=== PATIENT | female | born 1960 | race Hispanic/Latino ===

== ENCOUNTER 2016-10-03 10:39 | Outpatient (CLI) | payer MEDICARE ==
--- NOTE | 2016-10-03 14:15 | Mammography Report ---
Bilateral mammogram: Compared to 08/10/15. CAD study utilized. Findings: Heterogeneous breast parenchyma bilaterally. Bilateral benign calcifications. No mass. Normal axilla. Impression: Benign findings. Annual followup recommended. BI-RADS CATEGORY: 2 = Benign ACR BI-RADS MAMMOGRAPHIC CODES: 0 = Needs additional imaging evaluation; 1 = Negative; 2 = Benign; 3 = Probably benign; 4 = Suspicious; 5 = Malignant; 6 = Known biopsy-proven malignancy COMMENT: 1. Dense breast tissue, i.e., adenosis, fibrocystic changes, etc., may obscure an underlying neoplasm. 2. Approximately 10% of cancers are not detected with mammography. 3. A negative mammography report should not delay biopsy if a clinically suspicious mass is present. COMMENT: Patient follow-up letters are generated in [employer].
== END 2016-10-03 10:40 | disposition home or self-care (01) ==
LOC: MAMMO 10:39
PROVIDERS: ATTEND Family Medicine
DX: Z12.31 Encounter for screening mammogram for malignant neoplasm of breast (principal)
CPT/HCPCS: 77067; G0202

== ENCOUNTER 2018-06-22 13:51 | Inpatient (IN) | payer MEDICARE ==
[2018-06-22] MEDS ORDERED: NACL 0.9% 1000 ML 1,000 ML IV ONE ×2 (14:28→16:13)
[2018-06-22 14:37] LABS: Hematocrit 26.1 % (30.3-42.9); Hemoglobin 7.8 gm/dl (10.1-14.3); Mean Corpuscular HGB Conc 30 % (30-34); Mean Corpuscular Hemoglobin 27 pg (28-32); Mean Corpuscular Volume 92 fl (79-97); Platelet Count 183 K/mm3 (140-440); Red Blood Count 2.85 M/mm3 (3.65-5.03)
--- NOTE | 2018-06-22 14:38 | Emergency Department Report ---
HPI - General Chief Complaint: Altered Mental Status Time Seen by Provider: 06/22/18 14:13 - HPI HPI: 58-year-old female presents to the emergency department via EMS from home with altered mental status. I got a phone call from EMS when they were at the house as the patient was altered but agitated and did not want to come in to be seen. However the patient's has concern for her altered mental status and thinks that she may be having multiple mini seizures and wanted the patient seen and agreed to sedation. The patient does not 5 mg of Haldol in route without much change. She has a past medical history of COPD, liver cirrhosis, alcohol abuse, previous brain aneurysm with surgery. She follows with Dr. Brand of [facility] for her liver cirrhosis and the called gastroenterology and they were told to call 911 and come to the emergency department. The says that the patient has had episodes of altered mental status and agitation in the past that has required hospitalization secondary to complications of her liver cirrhosis. ED Past Medical Hx - Past Medical History Previous Medical History?: Yes Hx Seizures: Yes (Keppra) Hx COPD: Yes Additional medical history: "liver problems" associated with alcohol but resolved years ago - Surgical History Past Surgical History?: Yes Additional Surgical History: brain aneurysm, ankle surgery > 10 yrs ago - Social History Smoking Status: Current Every Day Smoker Substance Use Type: Alcohol - Medications Home Medications: Home Medications Medication Instructions Recorded Confirmed Last Taken Type Furosemide [Lasix] 20 mg PO DAILY 10/30/13 06/22/18 10/29/13 20:00 History Gabapentin [Neurontin] 200 mg PO BID 10/30/13 06/22/18 10/29/13 20:00 History Ipratropium (Nf) [Atrovent HFA 2 puff IH Q6HR PRN 10/30/13 06/22/18 10/29/13 20: 00 History 17MCG/PUFF] Spironolactone [Aldactone] 50 mg PO BID 10/30/13 06/22/18 10/29/13 20:00 History levETIRAcetam [Keppra] 500 mg PO BID #60 tablet 12/05/14 06/22/18 Unknown Rx Budesonide/Formoterol Fumarate 2 puff INHALATION BID 06/22/18 06/22/18 Unknown History [Symbicort 160-4.5 Mcg Inhaler] Ibuprofen 600 mg PO Q6HR 06/22/18 06/22/18 Unknown History Metoprolol Xl [Metoprolol 25 mg PO DAILY 06/22/18 06/22/18 Unknown History SUCCINATE ER TAB] Omeprazole 40 mg PO DAILY 06/22/18 06/22/18 Unknown History metOLazone [Metolazone] 5 mg PO 3XW 06/22/18 06/22/18 Unknown History ED Review of Systems ROS: Stated complaint: ALOC Other details as noted in HPI Comment: Unobtainable due to pts medical conditions Neurological: confusion Physical Exam - Physical Exam Vital Signs: Vital Signs 06/22/18 14:01 Temperature 97.8 F Pulse Rate 82 Respiratory 19 Rate Blood Pressure 81/43 O2 Sat by Pulse 100 Oximetry Physical Exam: GENERAL: Well nourished. Well developed. HENT: Normocephalic. Atraumatic. Patient has moist mucous membranes. EYES: Extraocular motions are intact. Pupils are equal and reactive bilaterally. NECK: Supple. Trachea is midline. CHEST/LUNGS: Clear to auscultation. There is no respiratory distress noted. HEART/CARDIOVASCULAR: Irregular rhythm. There is mild tachycardia. ABDOMEN: Abdomen is soft, nontender. Patient has normal bowel sounds. There is no abdominal distention. SKIN: Patient appears jaundiced. Skin is warm and dry. NEURO: Patient is awake but confused. She is agitated and cursing at staff. Patient is not cooperative. No facial asymmetry. No slurred speech. MUSCULOSKELETAL: There is no tenderness or deformity. There is no evidence of acute injury. ED Course Vital Signs 06/22/18 14:01 Temperature 97.8 F Pulse Rate 82 Respiratory 19 Rate Blood Pressure 81/43 O2 Sat by Pulse 100 Oximetry ED Medical Decision Making - Lab Data Result diagrams: 06/22/18 14:27 06/22/18 14:27 - EKG Data -: EKG Interpreted by Me - EKG Data When compared to previous EKG there are: previous EKG unavailable Interpretation: other (atrial flutter, normal axis, prolonged QTC, rate of 130 bpm) - Radiology Data Radiology results: report reviewed EXAM: US ABDOMEN LIMITED HISTORY: AMS, bilirubin of 11, hx of cirhosis TECHNIQUE: Real-time sonography was performed of the right upper quadrant and images are submitted for interpretation. PRIORS: None. FINDINGS: The liver has increased echogenicity in the lobular contour. The gallbladder appears distended and filled with sludge. There is no pericholecystic fluid. Numerous tortuous vessels are identified in the right upper quadrant suspicious for portosystemic collaterals. The common bile duct is not well seen. The pancreas is not well seen. The visualized segments of the abdominal aorta and IVC appear normal. The right kidney appears normal in size, shape and echogenicity, measuring 9.9 x 5.2 x 4.2 cm. IMPRESSION: 1. Echogenic lobular liver consistent with history of cirrhosis 2. Probable portosystemic collateral vessels 3. The gallbladder is distended and filled with sludge. There is no strong evidence for acute cholecystitis. Transcribed By: MOHINDER Dictated By: PAU WARREN MD Electronically Authenticated By: PAU WARREN MD Signed Date/Time: 06/22/181939 EXAM: CT HEAD/BRAIN WO CON HISTORY: AMS TECHNIQUE: CT examination of the head without IV contrast PRIORS: None. FINDINGS: Prior right frontoparietal craniotomy. Nonspecific hypodensity with volume loss and encephalomalacia is noted in the right occipital lobe suggestive of chronic infarct. There is associated ex vacuo dilatation of the adjacent occipital horn of the right lateral ventricle. No acute air-fluid level visualized in the included air-filled sinuses. Bone windows demonstrate no acute fracture. There is ventricular and sulcal prominence compatible with global cerebrocortical atrophy. The brain contains no mass, mass effect, hemorrhage, or acute infarct. There is no extra-axial intracranial bleed, brain bleed, or midline shift. 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 Both during the EMS call prior to presentation and once the patient arrived to the emergency department, the patient has shown that she has altered mental status. She is AAO 1-2. She is very agitated, cursing at staff and acting appropriately. Not only does the say that she is altered from her baseline, but I do not feel that this patient is acting appropriately and does not have the current mental capacity to make appropriate decisions for herself. Patient's labs show a ammonia level of greater than 100. Some lactulose was ordered. She has normal transaminase but has a total bilirubin of about 11. Patient has a potassium level of 2.5. I started correcting this with both by mouth and IV potassium supplementation. Patient's heart rate sounds and appears irregular and at times she has a rapid rate. Patient required some medication to be able to get the CT and ultrasound imaging done. The CT of the head did not show any bleed, shift, mass or any other acute process. Ultrasound shows gallbladder sludge but no signs of cholecystitis or acute Cholangitis. Patient will be admitted to the hospital for further evaluation and treatment and was except for admission by the hospitalist, Dr. Billy. - Differential Diagnosis hyperammonemia, CVA, TIA, dysrhythmia Critical Care Time: No Critical care attestation.: If time is entered above; I have spent that time in minutes in the direct care of this critically ill patient, excluding procedure time. ED Disposition Clinical Impression: Atrial flutter with rapid ventricular response, Hypokalemia, Hyperammonemia, Encephalopathy Altered mental status Qualifiers: Altered mental status type: unspecified Qualified Code(s): R41.82 - Altered mental status, unspecified Liver cirrhosis Qualifiers: Hepatic cirrhosis type: alcoholic cirrhosis Ascites presence: without ascites Qualified Code(s): K70.30 - Alcoholic cirrhosis of liver without ascites Disposition: 09 OP ADMIT IP TO THIS HOSP Is pt being admited?: Yes Condition: Serious Referrals: PRIMARY CARE, [Primary Care Provider] - 3-5 Days Time of Disposition: 19:48
[2018-06-22 15:07] LABS: BUN/Creatinine Ratio 20; Blood Urea Nitrogen 8 mg/dL (7-17)
[2018-06-22] MEDS ORDERED: CEPHULAC PO ONE (15:07)
[2018-06-22 15:08] LABS: Alanine Aminotransferase 48 units/L (7-56); Albumin 2.7 g/dL (3.9-5); Calcium 8.2 mg/dL (8.4-10.2); Hemolysis Index 10
[2018-06-22 15:11] LABS: Basophils % (Manual) 0 % (0.0-1.8); Eosinophils % (Manual) 0 % (0.0-4.3); Total Cells Counted 100
[2018-06-22 15:12] LABS: Anisocytosis 1+; Platelet Estimate Consistent w Auto
[2018-06-22 15:13] LABS: Poikilocytosis 1+; Spherocytes Few; Target Cells Few
[2018-06-22] MEDS ORDERED: K-DUR PO ONE ×3 (15:24→20:45)
[2018-06-22] MEDS ORDERED: KETALAR IV ONE (16:38)
[2018-06-22] MEDS ORDERED: ATIVAN IV ONE (16:38)
[2018-06-22] MEDS: KCL 10MEQ/100ML 10 MEQ/100 ML BAG IV SCH ×3 (16:55→23:35)
[2018-06-22] MEDS ORDERED: KETAMINE HCL IV ONE (17:00)
[2018-06-22 17:13] LABS: Bacteria,Urine 2+ /HPF (Negative); Bilirubin,Urine NEG (Negative); Blood,Urine NEG (Negative); Color,Urine Amber (Yellow); Mucus,Urine FEW /HPF; Protein,Urine <15 mg/dL mg/dL (Negative)
[2018-06-22 17:18] LABS: Amphetamine Screen,Urine PRESUMPTIVE NEGATIVE; Benzodiazepines Screen,Urine PRESUMPTIVE NEGATIVE; Cannabinoid Screen,Urine PRESUMPTIVE NEGATIVE; Cocaine Screen,Urine PRESUMPTIVE NEGATIVE; Methadone Screen,Urine PRESUMPTIVE NEGATIVE; Opiate Screen,Urine PRESUMPTIVE NEGATIVE
--- NOTE | 2018-06-22 18:08 | Cat Scan Report ---
FINAL REPORT EXAM: CT HEAD/BRAIN WO CON HISTORY: AMS TECHNIQUE: CT examination of the head without IV contrast PRIORS: None. FINDINGS: Prior right frontoparietal craniotomy. Nonspecific hypodensity with volume loss and encephalomalacia is noted in the right occipital lobe suggestive of chronic infarct. There is associated ex vacuo dilatation of the adjacent occipital horn of the right lateral ventricle. No acute air-fluid level visualized in the included air-filled sinuses. Bone windows demonstrate no acute fracture. There is ventricular and sulcal prominence compatible with global cerebrocortical atrophy. The brain contains no mass, mass effect, hemorrhage, or acute infarct. There is no extra-axial intracranial bleed, brain bleed, or midline shift. IMPRESSION: No acute CVA, intracranial bleed, or brain mass Findings suggest chronic infarct in right occipital lobe
--- NOTE | 2018-06-22 19:38 | Ultrasound Report ---
FINAL REPORT EXAM: US ABDOMEN LIMITED HISTORY: AMS, bilirubin of 11, hx of cirhosis TECHNIQUE: Real-time sonography was performed of the right upper quadrant and images are submitted for interpretation. PRIORS: None. FINDINGS: The liver has increased echogenicity in the lobular contour. The gallbladder appears distended and filled with sludge. There is no pericholecystic fluid. Numerous tortuous vessels are identified in the right upper quadrant suspicious for portosystemic collaterals. The common bile duct is not well seen. The pancreas is not well seen. The visualized segments of the abdominal aorta and IVC appear normal. The right kidney appears normal in size, shape and echogenicity, measuring 9.9 x 5.2 x 4.2 cm. IMPRESSION: 1. Echogenic lobular liver consistent with history of cirrhosis 2. Probable portosystemic collateral vessels 3. The gallbladder is distended and filled with sludge. There is no strong evidence for acute cholecystitis.
--- NOTE | 2018-06-22 20:01 | History and Physical Report ---
History of Present Illness Date of examination: 06/22/18 Date of admission: 06/22/2018 Chief complaint: Chief complaint Altered sensorium and severe confusion History of present illness: [place]: 58-year-old female with history of end-stage liver disease brought in from home for severe confusion and agitation and altered sensorium. Patient did not want to come but because of her came in. As per the she may be having multiple mini seizures. Patient was given Haldol 5 mg by EMS without much change. Patient has a history of COPD and sees lung disease seizure disorder COPD hypertension and gastroesophageal reflux disease. Patient had similar episodes of confusion and seizures in the past. Patient is not on chronic lactulose. No fever or chills. No dysuria. Patient has agitation. Past Medical History Previous Medical History?: Yes Hx Seizures: Yes ([place]oz) Hx COPD: Yes Additional medical history: "liver problems" associated with alcohol but resolved years ago End-stage liver disease Surgical History Past Surgical History?: Yes Additional Surgical History: brain aneurysm, ankle surgery > 10 yrs ago Social History Smoking Status: Current Every Day Smoker Substance Use Type: Alcohol Family history Hypertension - Medications Home Medications: Home Medications Medication Instructions Recorded Confirmed Last Taken Type Furosemide [Lasix] 20 mg PO DAILY 10/30/13 06/22/18 10/29/13 20:00 History Gabapentin [Neurontin] 200 mg PO BID 10/30/13 06/22/18 10/29/13 20:00 History Ipratropium (Nf) [Atrovent HFA 2 puff IH Q6HR PRN 10/30/13 06/22/18 10/29/13 20: 00 History 17MCG/PUFF] Spironolactone [Aldactone] 50 mg PO BID 10/30/13 06/22/18 10/29/13 20:00 History levETIRAcetam [Keppra] 500 mg PO BID #60 tablet 12/05/14 06/22/18 Unknown Rx Budesonide/Formoterol Fumarate 2 puff INHALATION BID 06/22/18 06/22/18 Unknown History [Symbicort 160-4.5 Mcg Inhaler] Ibuprofen 600 mg PO Q6HR 06/22/18 06/22/18 Unknown History Metoprolol Xl [Metoprolol 25 mg PO DAILY 06/22/18 06/22/18 Unknown History SUCCINATE ER TAB] Omeprazole 40 mg PO DAILY 06/22/18 06/22/18 Unknown History metOLazone [Metolazone] 5 mg PO 3XW 06/22/18 06/22/18 Unknown History Review of Systems ROS: Stated complaint: ALOC Other details as noted in HPI Comment: Unobtainable due to pts medical conditions Neurological: confusion 14 point review of systems attempted --could not be done Medications and Allergies Allergies Allergy/AdvReac Type Severity Reaction Status Date / Time No Known Allergies Allergy Verified 10/30/13 03:57 Home Medications Medication Instructions Recorded Confirmed Last Taken Type Furosemide [Lasix] 20 mg PO DAILY 10/30/13 06/22/18 10/29/13 20:00 History Gabapentin [Neurontin] 200 mg PO BID 10/30/13 06/22/18 10/29/13 20:00 History Ipratropium (Nf) [Atrovent HFA 2 puff IH Q6HR PRN 10/30/13 06/22/18 10/29/13 20: 00 History 17MCG/PUFF] Spironolactone [Aldactone] 50 mg PO BID 10/30/13 06/22/18 10/29/13 20:00 History levETIRAcetam [Keppra] 500 mg PO BID #60 tablet 12/05/14 06/22/18 Unknown Rx Budesonide/Formoterol Fumarate 2 puff INHALATION BID 06/22/18 06/22/18 Unknown History [Symbicort 160-4.5 Mcg Inhaler] Ibuprofen 600 mg PO Q6HR 06/22/18 06/22/18 Unknown History Metoprolol Xl [Metoprolol 25 mg PO DAILY 06/22/18 06/22/18 Unknown History SUCCINATE ER TAB] Omeprazole 40 mg PO DAILY 06/22/18 06/22/18 Unknown History metOLazone [Metolazone] 5 mg PO 3XW 06/22/18 06/22/18 Unknown History Exam - Physical Exam Narrative exam: Patient very uncomfortable - Constitutional Vitals: Temp Pulse Resp BP Pulse Ox 97.8 F 109 H 18 97/49 100 06/22/18 14:01 06/22/18 15:00 06/22/18 17:56 06/22/18 15:00 06/22/18 17:56 General appearance: Present: severe distress (agitated and restless and confused ), well-nourished - EENT Eyes: Present: PERRL ENT: hearing intact, clear oral mucosa - Neck Neck: Present: supple, normal ROM - Respiratory Respiratory effort: normal Respiratory: bilateral: CTA - Cardiovascular Heart rate: 76 Rhythm: regular Heart Sounds: Present: S1 & S2. Absent: rub, click - Extremities Extremities: no ischemia, pulses intact, pulses symmetrical, No edema Peripheral Pulses: within normal limits - Abdominal General gastrointestinal: Present: soft, non-tender, distended (slight distention), normal bowel sounds Female genitourinary: Present: normal - Integumentary Integumentary: Present: clear, warm, dry - Musculoskeletal Musculoskeletal: generalized weakness - Psychiatric Psychiatric: appropriate mood/affect, intact judgment & insight, agitated, depressed - Neurologic Neurologic: CNII-XII intact, moves all extremities, other (confused and agitated ) Results - Labs CBC & Chem 7: 06/22/18 14:27 06/22/18 14:27 Labs: Laboratory Last Values WBC 7.4 K/mm3 (4.5-11.0) 06/22/18 14:27 RBC 2.85 M/mm3 (3.65-5.03) L 06/22/18 14:27 Hgb 7.8 gm/dl (10.1-14.3) L 06/22/18 14:27 Hct 26.1 % (30.3-42.9) L 06/22/18 14:27 MCV 92 fl (79-97) 06/22/18 14:27 MCH 27 pg (28-32) L 06/22/18 14:27 MCHC 30 % (30-34) 06/22/18 14:27 RDW 27.0 % (13.2-15.2) H 06/22/18 14:27 Plt Count 183 K/mm3 (140-440) 06/22/18 14:27 Add Manual Diff Complete 06/22/18 14:27 Total Counted 100 06/22/18 14:27 Seg Neuts % (Manual) 88.0 % (40.0-70.0) H 06/22/18 14:27 Band Neutrophils % 0 % 06/22/18 14:27 Lymphocytes % (Manual) 4.0 % (13.4-35.0) L 06/22/18 14:27 Reactive Lymphs % (Man) 0 % 06/22/18 14:27 Monocytes % (Manual) 8.0 % (0.0-7.3) H 06/22/18 14:27 Eosinophils % (Manual) 0 % (0.0-4.3) 06/22/18 14:27 Basophils % (Manual) 0 % (0.0-1.8) 06/22/18 14:27 Metamyelocytes % 0 % 06/22/18 14:27 Myelocytes % 0 % 06/22/18 14:27 Promyelocytes % 0 % 06/22/18 14:27 Blast Cells % 0 % 06/22/18 14:27 Nucleated RBC % Not Reportable 06/22/18 14:27 Seg Neutrophils # Man 6.5 K/mm3 (1.8-7.7) 06/22/18 14:27 Band Neutrophils # 0.0 K/mm3 06/22/18 14:27 Lymphocytes # (Manual) 0.3 K/mm3 (1.2-5.4) L 06/22/18 14:27 Abs React Lymphs (Man) 0.0 K/mm3 06/22/18 14:27 Monocytes # (Manual) 0.6 K/mm3 (0.0-0.8) 06/22/18 14:27 Eosinophils # (Manual) 0.0 K/mm3 (0.0-0.4) 06/22/18 14:27 Basophils # (Manual) 0.0 K/mm3 (0.0-0.1) 06/22/18 14:27 Metamyelocytes # 0.0 K/mm3 06/22/18 14:27 Myelocytes # 0.0 K/mm3 06/22/18 14:27 Promyelocytes # 0.0 K/mm3 06/22/18 14:27 Blast Cells # 0.0 K/mm3 06/22/18 14:27 WBC Morphology Not Reportable 06/22/18 14:27 Hypersegmented Neuts Not Reportable 06/22/18 14:27 Hyposegmented Neuts Not Reportable 06/22/18 14:27 Hypogranular Neuts Not Reportable 06/22/18 14:27 Smudge Cells Not Reportable 06/22/18 14:27 Toxic Granulation Not Reportable 06/22/18 14:27 Toxic Vacuolation Not Reportable 06/22/18 14:27 Dohle Bodies Not Reportable 06/22/18 14:27 Pelger-Huet Anomaly Not Reportable 06/22/18 14:27 Bethanie Rods Not Reportable 06/22/18 14:27 Platelet Estimate Consistent w auto 06/22/18 14:27 Clumped Platelets Not Reportable 06/22/18 14:27 Plt Clumps, EDTA Not Reportable 06/22/18 14:27 Large Platelets Not Reportable 06/22/18 14:27 Giant Platelets Not Reportable 06/22/18 14:27 Platelet Satelliting Not Reportable 06/22/18 14:27 Plt Morphology Comment Not Reportable 06/22/18 14:27 RBC Morphology Not Reportable 06/22/18 14:27 Dimorphic RBCs Not Reportable 06/22/18 14:27 Polychromasia Not Reportable 06/22/18 14:27 Hypochromasia Not Reportable 06/22/18 14:27 Poikilocytosis 1+ 06/22/18 14:27 Anisocytosis 1+ 06/22/18 14:27 Microcytosis Not Reportable 06/22/18 14:27 Macrocytosis Not Reportable 06/22/18 14:27 Spherocytes Few 06/22/18 14:27 Pappenheimer Bodies Not Reportable 06/22/18 14:27 Sickle Cells Not Reportable 06/22/18 14:27 Target Cells Few 06/22/18 14:27 Tear Drop Cells Not Reportable 06/22/18 14:27 Ovalocytes Not Reportable 06/22/18 14:27 Helmet Cells Not Reportable 06/22/18 14:27 [place] Bodies Not Reportable 06/22/18 14:27 [place] Rings Not Reportable 06/22/18 14:27 [place] Cells Not Reportable 06/22/18 14:27 Bite Cells Not Reportable 06/22/18 14:27 Crenated Cell Not Reportable 06/22/18 14:27 Elliptocytes Not Reportable 06/22/18 14:27 Acanthocytes (Spur) Not Reportable 06/22/18 14:27 Rouleaux Not Reportable 06/22/18 14:27 Hemoglobin C Crystals Not Reportable 06/22/18 14:27 Schistocytes Not Reportable 06/22/18 14:27 Malaria parasites Not Reportable 06/22/18 14:27 Jerrell Bodies Not Reportable 06/22/18 14:27 Hem Pathologist Commnt No 06/22/18 14:27 Sodium 130 mmol/L (137-145) L 06/22/18 14:27 Potassium 2.5 mmol/L (3.6-5.0) L* 06/22/18 14:27 Chloride 85.0 mmol/L (98-107) L 06/22/18 14:27 Carbon Dioxide 28 mmol/L (22-30) 06/22/18 14:27 Anion Gap 20 mmol/L 06/22/18 14:27 BUN 8 mg/dL (7-17) 06/22/18 14:27 Creatinine 0.4 mg/dL (0.7-1.2) L 06/22/18 14:27 Estimated GFR > 60 ml/min 06/22/18 14:27 BUN/Creatinine Ratio 20 % 06/22/18 14:27 Glucose 116 mg/dL (65-100) H 06/22/18 14:27 Calcium 8.2 mg/dL (8.4-10.2) L 06/22/18 14:27 Total Bilirubin 11.90 mg/dL (0.1-1.2) H 06/22/18 14:27 AST 53 units/L (5-40) H 06/22/18 14:27 ALT 48 units/L (7-56) 06/22/18 14:27 Alkaline Phosphatase 140 units/L (35-129) H 06/22/18 14:27 Ammonia 101.0 umol/L (25-60) H 06/22/18 14:27 Total Protein 6.2 g/dL (6.3-8.2) L 06/22/18 14:27 Albumin 2.7 g/dL (3.9-5) L 06/22/18 14:27 Albumin/Globulin Ratio 0.8 % 06/22/18 14:27 TSH 3.460 mlU/mL (0.270-4.200) 06/22/18 14:27 Urine Color Yany (Yellow) 06/22/18 Unknown Urine Turbidity Clear (Clear) 06/22/18 Unknown Urine pH 7.0 (5.0-7.0) 06/22/18 Unknown Ur Specific [place] 1.004 (1.003-1.030) 06/22/18 Unknown Urine Protein <15 mg/dl mg/dL (Negative) 06/22/18 Unknown Urine Glucose (UA) Neg mg/dL (Negative) 06/22/18 Unknown Urine Ketones Neg mg/dL (Negative) 06/22/18 Unknown Urine Blood Neg (Negative) 06/22/18 Unknown Urine Nitrite Neg (Negative) 06/22/18 Unknown Urine Bilirubin Neg (Negative) 06/22/18 Unknown Urine Urobilinogen 4.0 mg/dL (<2.0) 06/22/18 Unknown Ur Leukocyte Esterase Sm (Negative) 06/22/18 Unknown Urine WBC (Auto) 9.0 /HPF (0.0-6.0) H 06/22/18 Unknown Urine RBC (Auto) 3.0 /HPF (0.0-6.0) 06/22/18 Unknown U Epithel Cells (Auto) 1.0 /HPF (0-13.0) 06/22/18 Unknown Urine Bacteria (Auto) 2+ /HPF (Negative) 06/22/18 Unknown Urine Mucus Few /HPF 06/22/18 Unknown Urine Opiates Screen Presumptive negative 06/22/18 Unknown Urine Methadone Screen Presumptive negative 06/22/18 Unknown Ur Barbiturates Screen Presumptive negative 06/22/18 Unknown Ur Phencyclidine Scrn Presumptive negative 06/22/18 Unknown Ur Amphetamines Screen Presumptive negative 06/22/18 Unknown U Benzodiazepines Scrn Presumptive negative 06/22/18 Unknown Urine Cocaine Screen Presumptive negative 06/22/18 Unknown U Marijuana (THC) Screen Presumptive negative 06/22/18 Unknown Drugs of Abuse Note Disclamer 06/22/18 Unknown Plasma/Serum Alcohol < 0.01 % (0-0.07) 06/22/18 14:11 Short CBC 06/22/18 Range/Units 14:27 WBC 7.4 (4.5-11.0) K/mm3 Hgb 7.8 L (10.1-14.3) gm/dl Hct 26.1 L (30.3-42.9) % Plt Count 183 (140-440) K/mm3 BMP 06/22/18 14:27 Sodium 130 L Potassium 2.5 L* Chloride 85.0 L Carbon Dioxide 28 BUN 8 Creatinine 0.4 L Glucose 116 H Calcium 8.2 L Liver Function 06/22/18 Range/Units 14:27 Total Bilirubin 11.90 H (0.1-1.2) mg/dL AST 53 H (5-40) units/L ALT 48 (7-56) units/L Alkaline Phosphatase 140 H (35-129) units/L Albumin 2.7 L (3.9-5) g/dL Urine 06/22/18 Range/Units Unknown Urine Color Yany (Yellow) Urine pH 7.0 (5.0-7.0) Ur Specific [place] 1.004 (1.003-1.030) Urine Protein <15 mg/dl (Negative) mg/dL Urine Glucose (UA) Neg (Negative) mg/dL - Imaging and Cardiology Imaging and Cardiology: Abdominal ultrasound FINDINGS: The liver has increased echogenicity in the lobular contour. The gallbladder appears distended and filled with sludge. There is no pericholecystic fluid. Numerous tortuous vessels are identified in the right upper quadrant suspicious for portosystemic collaterals. The common bile duct is not well seen. The pancreas is not well seen. The visualized segments of the abdominal aorta and IVC appear normal. The right kidney appears normal in size, shape and echogenicity, measuring 9.9 x 5.2 x 4.2 cm. IMPRESSION: 1. Echogenic lobular liver consistent with history of cirrhosis 2. Probable portosystemic collateral vessels 3. The gallbladder is distended and filled with sludge. There is no strong evidence for acute cholecystitis. Assessment and Plan Advance Directives: Yes (full code) VTE prophylaxis?: Mechanical Plan of care discussed with patient/family: Yes - Patient Problems (1) Acute hepatic encephalopathy Current Visit: Yes Status: Acute Plan to address problem: Patient initiated on lactulose 40 g every 8 hours May need Xifaxan GI consult requested (2) Hypokalemia Current Visit: Yes Status: Acute Plan to address problem: Supplemented (3) Acute hepatitis Current Visit: Yes Status: Acute Plan to address problem: Secondary to end-stage liver disease Supportive care GI consult (4) Seizure disorder Current Visit: Yes Status: Chronic Plan to address problem: Continue Keppra (5) Hypertension Current Visit: Yes Status: Chronic Qualifiers: Hypertension type: essential hypertension Qualified Code(s): I10 - Essential (primary) hypertension Plan to address problem: Continue metoprolol (6) Cirrhosis of liver with ascites Current Visit: Yes Status: Chronic Qualifiers: Hepatic cirrhosis type: alcoholic cirrhosis Qualified Code(s): K70.31 - Alcoholic cirrhosis of liver with ascites Plan to address problem: Continue Lasix and spironolactone (7) COPD (chronic obstructive pulmonary disease) Current Visit: Yes Status: Chronic Qualifiers: Chronic bronchitis type: unspecified Plan to address problem: Continue DO NOT RESUSCITATE (8) Hyperammonemia Current Visit: Yes Status: Acute Plan to address problem: Lactulose 40 g every 8 hours (9) UTI (urinary tract infection) Current Visit: Yes Status: Acute Qualifiers: Urinary tract infection type: acute cystitis Plan to address problem: IV Rocephin initiated (10) DVT prophylaxis Current Visit: Yes Status: Acute Plan to address problem: Only SCDs GI prophylaxis initiated
[2018-06-22] MEDS ORDERED: ZOFRAN IV PRN (20:38)
[2018-06-22] MEDS ORDERED: SODIUM CHLORIDE FLUSH SYRINGE 10 ML IV PRN (20:38)
[2018-06-22] MEDS ORDERED: TYLENOL PO PRN (20:38)
[2018-06-22] MEDS ORDERED: MILK OF MAGNESIA ONE (21:20)
[2018-06-22] MEDS ORDERED: NON-FORMULARY (Budesonide/Formoterol Fumarate [Symbicort 160-4.5 Mcg Inhaler] 2 PUFF) INHALATION SCH (22:00)
[2018-06-22] MEDS ORDERED: SPIRONOLACTONE 50 MG PO SCH (22:00)
[2018-06-22] MEDS: SODIUM CHLORIDE FLUSH SYRINGE 10 ML IV SCH (23:36)
[2018-06-22] MEDS: PEPCID IV SCH (23:36)
[2018-06-22] MEDS: KEPPRA PO SCH (23:36)
[2018-06-22] MEDS: ALDACTONE PO SCH (23:37)
[2018-06-23] MEDS: KCL 10MEQ/100ML 10 MEQ/100 ML BAG IV SCH ×4 (00:34→02:50)
[2018-06-23] MEDS: CEPHULAC PR SCH ×3 (00:35→15:12)
[2018-06-23] MEDS: LASIX PO SCH ×2 (00:35→12:12)
[2018-06-23] MEDS: NACL 0.9% 1000 ML 1,000 ML IV SCH (02:14)
[2018-06-23 04:52] LABS: Mean Corpuscular HGB Conc 29 % (30-34); Mean Corpuscular Hemoglobin 28 pg (28-32); Mean Corpuscular Volume 96 fl (79-97); Red Blood Count 2.45 M/mm3 (3.65-5.03)
[2018-06-23 04:55] LABS: Hematocrit 23.5 % (30.3-42.9); Hemoglobin 6.8 gm/dl (10.1-14.3); Red Cell Distribution Width 27.5 % (13.2-15.2)
[2018-06-23 05:14] LABS: Alanine Aminotransferase 41 units/L (7-56); Albumin 2.4 g/dL (3.9-5); BUN/Creatinine Ratio 23; Blood Urea Nitrogen 7 mg/dL (7-17); Calcium 7.9 mg/dL (8.4-10.2); Hemolysis Index 6
[2018-06-23 06:43] LABS: Basophils % (Manual) 0 % (0.0-1.8); Eosinophils % (Manual) 0 % (0.0-4.3); Total Cells Counted 100
[2018-06-23 06:45] LABS: Anisocytosis 1+; Hypochromasia 1+
[2018-06-23 06:48] LABS: Target Cells Few
[2018-06-23 06:51] LABS: Platelet Count TNR K/mm3 (140-440)
[2018-06-23 06:56] LABS: Platelet Clumps 1+
[2018-06-23] MEDS ORDERED: K-DUR PO ONE (08:00)
--- NOTE | 2018-06-23 08:05 | Progress Note ---
Assessment and Plan Assessment and plan: --Hypokalemia; replaced per protocol and monitor levels Check magnesium --Hyponatremia; secondary to fluid overload On diuretics, minimal improvement, closely monitor electrolytes --Hypertension; moderate control, continue current antihypertensives When necessary medications --Anemia; hemoglobin today is 6.8 No external evidence of bleeding, check stool for occult blood GI consulted, transfuse 1 unit of PRBC, closely monitor H&H --Hepatic encephalopathy; Continue supportive care, monitor ammonia levels Continue lactulose --Cirrhosis liver/hyper bilirubinemia Mild improvement ,Continue current management, GI consulted Follow GI evaluation and recommendations --History of seizure disorder; Seizure precautions, continue antiepileptic medication, --AV and malnutrition/hypoalbuminemia; Supportive care, nutrition consult --DVT prophylaxis; SCDs, no pharmacologic anticoagulation in view of thrombocytopenia --DO NOT RESUSCITATE[ reports that patient has a living will, do not want resuscitation] Advised to get a copy for the records Closely monitor the patient and adjust management as needed History Interval history: Patient seen and examined medical records reviewed No new events reported by the nursing staff Admitted with hepatic and neuropathy, minimally responsive On lactulose Vital signs noted Hospitalist Physical - Constitutional Vitals: Temp Pulse Resp BP Pulse Ox 98.2 F 117 H 18 143/65 100 06/23/18 04:44 06/23/18 04:44 06/23/18 04:44 06/23/18 04:44 06/23/18 04:44 General appearance: Present: mild distress, well-nourished, other (minimally communicative, confused at times) - EENT Eyes: Present: PERRL, EOM intact - Neck Neck: Present: supple, normal ROM - Respiratory Respiratory effort: normal Respiratory: bilateral: diminished, rales, negative: rhonchi, wheezing - Cardiovascular Rhythm: regular Heart Sounds: Present: S1 & S2 - Extremities Extremities: no ischemia, No edema - Abdominal General gastrointestinal: soft, non-tender, distended, normal bowel sounds - Integumentary Integumentary: Present: clear, warm, jaundice - Psychiatric Psychiatric: appropriate mood/affect, other (confused at times) - Neurologic Neurologic: moves all extremities Results - Labs CBC & Chem 7: 06/23/18 08:42 06/23/18 04:30 Labs: Laboratory Last Values WBC 8.5 K/mm3 (4.5-11.0) 06/23/18 04:30 RBC 2.45 M/mm3 (3.65-5.03) L 06/23/18 04:30 Hgb 6.8 gm/dl (10.1-14.3) L 06/23/18 04:30 Hct 23.5 % (30.3-42.9) L 06/23/18 04:30 MCV 96 fl (79-97) 06/23/18 04:30 MCH 28 pg (28-32) 06/23/18 04:30 MCHC 29 % (30-34) L 06/23/18 04:30 RDW 27.5 % (13.2-15.2) H 06/23/18 04:30 Plt Count TNR 06/23/18 04:30 Add Manual Diff Complete 06/23/18 04:30 Total Counted 100 06/23/18 04:30 Seg Neuts % (Manual) 89.0 % (40.0-70.0) H 06/23/18 04:30 Band Neutrophils % 0 % 06/23/18 04:30 Lymphocytes % (Manual) 8.0 % (13.4-35.0) L 06/23/18 04:30 Reactive Lymphs % (Man) 0 % 06/23/18 04:30 Monocytes % (Manual) 3.0 % (0.0-7.3) 06/23/18 04:30 Eosinophils % (Manual) 0 % (0.0-4.3) 06/23/18 04:30 Basophils % (Manual) 0 % (0.0-1.8) 06/23/18 04:30 Metamyelocytes % 0 % 06/23/18 04:30 Myelocytes % 0 % 06/23/18 04:30 Promyelocytes % 0 % 06/23/18 04:30 Blast Cells % 0 % 06/23/18 04:30 Nucleated RBC % Not Reportable 06/23/18 04:30 Seg Neutrophils # Man 7.6 K/mm3 (1.8-7.7) 06/23/18 04:30 Band Neutrophils # 0.0 K/mm3 06/23/18 04:30 Lymphocytes # (Manual) 0.7 K/mm3 (1.2-5.4) L 06/23/18 04:30 Abs React Lymphs (Man) 0.0 K/mm3 10/24/18 04:30 Monocytes # (Manual) 0.3 K/mm3 (0.0-0.8) 06/23/18 04:30 Eosinophils # (Manual) 0.0 K/mm3 (0.0-0.4) 06/23/18 04:30 Basophils # (Manual) 0.0 K/mm3 (0.0-0.1) 06/23/18 04:30 Metamyelocytes # 0.0 K/mm3 06/23/18 04:30 Myelocytes # 0.0 K/mm3 06/23/18 04:30 Promyelocytes # 0.0 K/mm3 06/23/18 04:30 Blast Cells # 0.0 K/mm3 06/23/18 04:30 WBC Morphology Not Reportable 06/23/18 04:30 Hypersegmented Neuts Not Reportable 06/23/18 04:30 Hyposegmented Neuts Not Reportable 06/23/18 04:30 Hypogranular Neuts Not Reportable 06/23/18 04:30 Smudge Cells Not Reportable 06/23/18 04:30 Toxic Granulation Not Reportable 06/23/18 04:30 Toxic Vacuolation Not Reportable 06/23/18 04:30 Dohle Bodies Not Reportable 06/23/18 04:30 Pelger-Huet Anomaly Not Reportable 06/23/18 04:30 Bethanie Rods Not Reportable 06/23/18 04:30 Platelet Estimate Not Reportable 06/23/18 04:30 Clumped Platelets 1+ 06/23/18 04:30 Plt Clumps, EDTA Not Reportable 06/23/18 04:30 Large Platelets Not Reportable 06/23/18 04:30 Giant Platelets Not Reportable 06/23/18 04:30 Platelet Satelliting Not Reportable 06/23/18 04:30 Plt Morphology Comment Not Reportable 06/23/18 04:30 RBC Morphology Not Reportable 06/23/18 04:30 Dimorphic RBCs Not Reportable 06/23/18 04:30 Polychromasia Not Reportable 06/23/18 04:30 Hypochromasia 1+ 06/23/18 04:30 Poikilocytosis Not Reportable 06/23/18 04:30 Anisocytosis 1+ 06/23/18 04:30 Microcytosis Not Reportable 06/23/18 04:30 Macrocytosis Not Reportable 06/23/18 04:30 Spherocytes Not Reportable 06/23/18 04:30 Pappenheimer Bodies Not Reportable 06/23/18 04:30 Sickle Cells Not Reportable 06/23/18 04:30 Target Cells Few 06/23/18 04:30 Tear Drop Cells Not Reportable 06/23/18 04:30 Ovalocytes Not Reportable 06/23/18 04:30 Helmet Cells Not Reportable 06/23/18 04:30 [place] Bodies Not Reportable 06/23/18 04:30 [place] Rings Not Reportable 06/23/18 04:30 [place] Cells Not Reportable 06/23/18 04:30 Bite Cells Not Reportable 06/23/18 04:30 Crenated Cell Not Reportable 06/23/18 04:30 Elliptocytes Not Reportable 06/23/18 04:30 Acanthocytes (Spur) Not Reportable 06/23/18 04:30 Rouleaux Not Reportable 06/23/18 04:30 Hemoglobin C Crystals Not Reportable 06/23/18 04:30 Schistocytes Not Reportable 06/23/18 04:30 Malaria parasites Not Reportable 06/23/18 04:30 Jerrell Bodies Not Reportable 06/23/18 04:30 Hem Pathologist Commnt No 06/23/18 04:30 Sodium 132 mmol/L (137-145) L 06/23/18 04:30 Potassium 3.3 mmol/L (3.6-5.0) L D 06/23/18 04:30 Chloride 94.0 mmol/L (98-107) L 06/23/18 04:30 Carbon Dioxide 25 mmol/L (22-30) 06/23/18 04:30 Anion Gap 16 mmol/L 06/23/18 04:30 BUN 7 mg/dL (7-17) 06/23/18 04:30 Creatinine 0.3 mg/dL (0.7-1.2) L 06/23/18 04:30 Estimated GFR > 60 ml/min 06/23/18 04:30 BUN/Creatinine Ratio 23 % 06/23/18 04:30 Glucose 94 mg/dL (65-100) 06/23/18 04:30 POC Glucose 114 (70-105) H 06/23/18 07:19 Hemoglobin A1c < 4.0 % (4-6) L 06/22/18 23:12 Calcium 7.9 mg/dL (8.4-10.2) L 06/23/18 04:30 Total Bilirubin 10.30 mg/dL (0.1-1.2) H 06/23/18 04:30 AST 51 units/L (5-40) H 06/23/18 04:30 ALT 41 units/L (7-56) 06/23/18 04:30 Alkaline Phosphatase 121 units/L (35-129) 06/23/18 04:30 Ammonia 101.0 umol/L (25-60) H 06/22/18 14:27 Total Protein 5.4 g/dL (6.3-8.2) L 06/23/18 04:30 Albumin 2.4 g/dL (3.9-5) L 06/23/18 04:30 Albumin/Globulin Ratio 0.8 % 06/23/18 04:30 TSH 3.460 mlU/mL (0.270-4.200) 06/22/18 14:27 Urine Color Yany (Yellow) 06/22/18 Unknown Urine Turbidity Clear (Clear) 06/22/18 Unknown Urine pH 7.0 (5.0-7.0) 06/22/18 Unknown Ur Specific [place] 1.004 (1.003-1.030) 06/22/18 Unknown Urine Protein <15 mg/dl mg/dL (Negative) 06/22/18 Unknown Urine Glucose (UA) Neg mg/dL (Negative) 06/22/18 Unknown Urine Ketones Neg mg/dL (Negative) 06/22/18 Unknown Urine Blood Neg (Negative) 06/22/18 Unknown Urine Nitrite Neg (Negative) 06/22/18 Unknown Urine Bilirubin Neg (Negative) 06/22/18 Unknown Urine Urobilinogen 4.0 mg/dL (<2.0) 06/22/18 Unknown Ur Leukocyte Esterase Sm (Negative) 06/22/18 Unknown Urine WBC (Auto) 9.0 /HPF (0.0-6.0) H 06/22/18 Unknown Urine RBC (Auto) 3.0 /HPF (0.0-6.0) 06/22/18 Unknown U Epithel Cells (Auto) 1.0 /HPF (0-13.0) 06/22/18 Unknown Urine Bacteria (Auto) 2+ /HPF (Negative) 06/22/18 Unknown Urine Mucus Few /HPF 06/22/18 Unknown Urine Opiates Screen Presumptive negative 06/22/18 Unknown Urine Methadone Screen Presumptive negative 06/22/18 Unknown Ur Barbiturates Screen Presumptive negative 06/22/18 Unknown Ur Phencyclidine Scrn Presumptive negative 06/22/18 Unknown Ur Amphetamines Screen Presumptive negative 06/22/18 Unknown U Benzodiazepines Scrn Presumptive negative 06/22/18 Unknown Urine Cocaine Screen Presumptive negative 06/22/18 Unknown U Marijuana (THC) Screen Presumptive negative 06/22/18 Unknown Drugs of Abuse Note Disclamer 06/22/18 Unknown Plasma/Serum Alcohol < 0.01 % (0-0.07) 06/22/18 14:11
[2018-06-23] MEDS: PULMICORT IH SCH ×2 (08:30→19:12)
[2018-06-23] MEDS: BROVANA NEBU IH SCH ×2 (08:31→19:12)
[2018-06-23] MEDS ORDERED: ZAROXOLYN PO SCH (10:00)
--- NOTE | 2018-06-23 10:58 | Gastroenterology Consultation ---
<ZAYRA OLSON - Last Filed: 06/23/18 10:59> History of Present Illness - Reason for Consult Consult date: 06/23/18 hepatic encephalopathy Requesting physician: DILCIA CARLOS - History of Present Illness Patient is a 58 y/o female with PMH of alcoholic cirrhosis and COPD who was brought to ED due to AMS. Upon admission ammonia level was noted to be elevated and she was admitted for hepatic encephalopathy to which GI has been consulted. Patient is well known to our service. She is followed by with last OV 06/16/18, however she has a long history of non-compliant with follow up. She has a hx of cirrhosis 2/2 ETOH abuse for over a decade and is still heavily drinking with consumption of 6-10 beers per day. On lasix and spironolactone at home. This am patient was resting in bed w/o acute distress. Alert and oriented x 3, however remains agitated. Denies abd pain, N/V, or signs of bleeding. No Fhx of liver disease. Past History Past Medical History: COPD, liver disease (cirrhosis), seizures Past Surgical History: Other (brain aneurysm, ankle surgery > 10 yrs ago) Social history: smoking, alcohol abuse Medications and Allergies Allergies Allergy/AdvReac Type Severity Reaction Status Date / Time No Known Allergies Allergy Verified 10/30/13 03:57 Home Medications Medication Instructions Recorded Confirmed Last Taken Type Furosemide [Lasix] 20 mg PO DAILY 10/30/13 06/22/18 10/29/13 20:00 History Gabapentin [Neurontin] 200 mg PO BID 10/30/13 06/22/18 10/29/13 20:00 History Ipratropium (Nf) [Atrovent HFA 2 puff IH Q6HR PRN 10/30/13 06/22/18 10/29/13 20: 00 History 17MCG/PUFF] Spironolactone [Aldactone] 50 mg PO BID 10/30/13 06/22/18 10/29/13 20:00 History levETIRAcetam [Keppra] 500 mg PO BID #60 tablet 12/05/14 06/22/18 Unknown Rx Budesonide/Formoterol Fumarate 2 puff INHALATION BID 06/22/18 06/22/18 Unknown History [Symbicort 160-4.5 Mcg Inhaler] Ibuprofen 600 mg PO Q6HR 06/22/18 06/22/18 Unknown History Metoprolol Xl [Metoprolol 25 mg PO DAILY 06/22/18 06/22/18 Unknown History SUCCINATE ER TAB] Omeprazole 40 mg PO DAILY 06/22/18 06/22/18 Unknown History metOLazone [Metolazone] 5 mg PO 3XW 06/22/18 06/22/18 Unknown History Active Meds: Active Medications Acetaminophen (Tylenol) 650 mg PO Q4H PRN PRN Reason: Pain MILD(1-3)/Fever >100.5/CARRION Arformoterol Tartrate (Brovana Nebu) 15 mcg IH Q12HRT [facility] Last Admin: 06/23/18 08:31 Dose: 15 mcg Budesonide (Pulmicort) 1 mg IH Q12HRT [facility] Last Admin: 06/23/18 08:30 Dose: 1 mg Famotidine (Pepcid) 20 mg IV BID [facility] Last Admin: 06/22/18 23:36 Dose: 20 mg Furosemide (Lasix) 40 mg PO DAILY [facility] Last Admin: 06/23/18 00:35 Dose: Not Given Sodium Chloride (Nacl 0.9% 1000 Ml) 1,000 mls @ 42 mls/hr IV DIRECT [facility] Last Admin: 06/23/18 02:14 Dose: 42 mls/hr Sodium Chloride (Nacl 0.9% 500 Ml) 500 mls @ 0 mls/hr IV ONCE ONE Stop: 06/23/18 11:01 Lactulose (Cephulac) 20 gm MT Q8H [facility] Last Admin: 06/23/18 05:00 Dose: Not Given Levetiracetam (Keppra) 500 mg PO BID [facility] Last Admin: 06/22/18 23:36 Dose: 500 mg Metolazone (Zaroxolyn) 5 mg PO MoWeFr@1000 [facility] Metoprolol Succinate (Toprol Xl) 25 mg PO DAILY [facility] Ondansetron HCl (Zofran) 4 mg IV Q8H PRN PRN Reason: Nausea And Vomiting Sodium Chloride (Sodium Chloride Flush Syringe 10 Ml) 10 ml IV BID [facility] Last Admin: 06/22/18 23:36 Dose: 10 ml Sodium Chloride (Sodium Chloride Flush Syringe 10 Ml) 10 ml IV PRN PRN PRN Reason: LINE FLUSH Spironolactone (Aldactone) 50 mg PO BID [facility] Last Admin: 06/22/18 23:37 Dose: 50 mg Review of Systems - Review of Systems All systems: negative Gastrointestinal: no abdominal pain, no nausea, no vomiting Psychiatric: other (agitation) Exam - Constitutional Vital Signs: Temp Pulse Resp BP Pulse Ox 98.2 F 106 H 18 143/65 100 06/23/18 04:44 06/23/18 08:52 06/23/18 08:52 06/23/18 04:44 06/23/18 04:44 General appearance: no acute distress, other (agitated) - EENT Eyes: scleral icterus - Respiratory Respiratory: bilateral: CTA (anterior) - Cardiovascular Rhythm: other (tachycardia) - Gastrointestinal General gastrointestinal: Present: soft, non-tender, non-distended, normal bowel sounds - Integumentary Integumentary: Present: jaundice - Neurologic Neurological: alert and oriented x3 - Labs CBC & Chem 7: 06/23/18 08:42 06/23/18 04:30 Lab Results: Laboratory Results - last 24 hr 06/22/18 06/22/18 06/22/18 14:11 14:27 14:27 WBC 7.4 RBC 2.85 L Hgb 7.8 L Hct 26.1 L MCV 92 MCH 27 L MCHC 30 RDW 27.0 H Plt Count 183 Add Manual Diff Complete Total Counted 100 Seg Neuts % (Manual) 88.0 H Band Neutrophils % 0 Lymphocytes % (Manual) 4.0 L Reactive Lymphs % (Man) 0 Monocytes % (Manual) 8.0 H Eosinophils % (Manual) 0 Basophils % (Manual) 0 Metamyelocytes % 0 Myelocytes % 0 Promyelocytes % 0 Blast Cells % 0 Nucleated RBC % Not Reportable Seg Neutrophils # Man 6.5 Band Neutrophils # 0.0 Lymphocytes # (Manual) 0.3 L Abs React Lymphs (Man) 0.0 Monocytes # (Manual) 0.6 Eosinophils # (Manual) 0.0 Basophils # (Manual) 0.0 Metamyelocytes # 0.0 Myelocytes # 0.0 Promyelocytes # 0.0 Blast Cells # 0.0 WBC Morphology Not Reportable Hypersegmented Neuts Not Reportable Hyposegmented Neuts Not Reportable Hypogranular Neuts Not Reportable Smudge Cells Not Reportable Toxic Granulation Not Reportable Toxic Vacuolation Not Reportable Dohle Bodies Not Reportable Pelger-Huet Anomaly Not Reportable Bethanie Rods Not Reportable Platelet Estimate Consistent w auto Clumped Platelets Not Reportable Plt Clumps, EDTA Not Reportable Large Platelets Not Reportable Giant Platelets Not Reportable Platelet Satelliting Not Reportable Plt Morphology Comment Not Reportable RBC Morphology Not Reportable Dimorphic RBCs Not Reportable Polychromasia Not Reportable Hypochromasia Not Reportable Poikilocytosis 1+ Anisocytosis 1+ Microcytosis Not Reportable Macrocytosis Not Reportable Spherocytes Few Pappenheimer Bodies Not Reportable Sickle Cells Not Reportable Target Cells Few Tear Drop Cells Not Reportable Ovalocytes Not Reportable Helmet Cells Not Reportable Gauthier-[place] Bodies Not Reportable Varney Rings Not Reportable Kay Cells Not Reportable Bite Cells Not Reportable Crenated Cell Not Reportable Elliptocytes Not Reportable Acanthocytes (Spur) Not Reportable Rouleaux Not Reportable Hemoglobin C Crystals Not Reportable Schistocytes Not Reportable Malaria parasites Not Reportable Jerrell Bodies Not Reportable Hem Pathologist Commnt No Sodium 130 L Potassium 2.5 L* Chloride 85.0 L Carbon Dioxide 28 Anion Gap 20 BUN 8 Creatinine 0.4 L Estimated GFR > 60 BUN/Creatinine Ratio 20 Glucose 116 H POC Glucose Hemoglobin A1c Calcium 8.2 L Total Bilirubin 11.90 H AST 53 H ALT 48 Alkaline Phosphatase 140 H Ammonia Total Protein 6.2 L Albumin 2.7 L Albumin/Globulin Ratio 0.8 TSH Urine Color Urine Turbidity Urine pH Ur Specific [place] Urine Protein Urine Glucose (UA) Urine Ketones Urine Blood Urine Nitrite Urine Bilirubin Urine Urobilinogen Ur Leukocyte Esterase Urine WBC (Auto) Urine RBC (Auto) U Epithel Cells (Auto) Urine Bacteria (Auto) Urine Mucus Urine Opiates Screen Urine Methadone Screen Ur Barbiturates Screen Ur Phencyclidine Scrn Ur Amphetamines Screen U Benzodiazepines Scrn Urine Cocaine Screen U Marijuana (THC) Screen Drugs of Abuse Note Plasma/Serum Alcohol < 0.01 Blood Type Antibody Screen Crossmatch 06/22/18 06/22/18 06/22/18 14:27 14:27 23:12 WBC RBC Hgb Hct MCV MCH MCHC RDW Plt Count Add Manual Diff Total Counted Seg Neuts % (Manual) Band Neutrophils % Lymphocytes % (Manual) Reactive Lymphs % (Man) Monocytes % (Manual) Eosinophils % (Manual) Basophils % (Manual) Metamyelocytes % Myelocytes % Promyelocytes % Blast Cells % Nucleated RBC % Seg Neutrophils # Man Band Neutrophils # Lymphocytes # (Manual) Abs React Lymphs (Man) Monocytes # (Manual) Eosinophils # (Manual) Basophils # (Manual) Metamyelocytes # Myelocytes # Promyelocytes # Blast Cells # WBC Morphology Hypersegmented Neuts Hyposegmented Neuts Hypogranular Neuts Smudge Cells Toxic Granulation Toxic Vacuolation Dohle Bodies Pelger-Huet Anomaly Bethanie Rods Platelet Estimate Clumped Platelets Plt Clumps, EDTA Large Platelets Giant Platelets Platelet Satelliting Plt Morphology Comment RBC Morphology Dimorphic RBCs Polychromasia Hypochromasia Poikilocytosis Anisocytosis Microcytosis Macrocytosis Spherocytes Pappenheimer Bodies Sickle Cells Target Cells Tear Drop Cells Ovalocytes Helmet Cells Gauthier-[place] Bodies Varney Rings Kay Cells Bite Cells Crenated Cell Elliptocytes Acanthocytes (Spur) Rouleaux Hemoglobin C Crystals Schistocytes Malaria parasites Jerrell Bodies Hem Pathologist Commnt Sodium Potassium Chloride Carbon Dioxide Anion Gap BUN Creatinine Estimated GFR BUN/Creatinine Ratio Glucose POC Glucose Hemoglobin A1c < 4.0 L Calcium Total Bilirubin AST ALT Alkaline Phosphatase Ammonia 101.0 H Total Protein Albumin Albumin/Globulin Ratio TSH 3.460 Urine Color Urine Turbidity Urine pH Ur Specific [place] Urine Protein Urine Glucose (UA) Urine Ketones Urine Blood Urine Nitrite Urine Bilirubin Urine Urobilinogen Ur Leukocyte Esterase Urine WBC (Auto) Urine RBC (Auto) U Epithel Cells (Auto) Urine Bacteria (Auto) Urine Mucus Urine Opiates Screen Urine Methadone Screen Ur Barbiturates Screen Ur Phencyclidine Scrn Ur Amphetamines Screen U Benzodiazepines Scrn Urine Cocaine Screen U Marijuana (THC) Screen Drugs of Abuse Note Plasma/Serum Alcohol Blood Type Antibody Screen Crossmatch 06/22/18 06/22/18 06/23/18 Unknown Unknown 04:30 WBC 8.5 RBC 2.45 L Hgb 6.8 L Hct 23.5 L MCV 96 MCH 28 MCHC 29 L RDW 27.5 H Plt Count TNR Add Manual Diff Complete Total Counted 100 Seg Neuts % (Manual) 89.0 H Band Neutrophils % 0 Lymphocytes % (Manual) 8.0 L Reactive Lymphs % (Man) 0 Monocytes % (Manual) 3.0 Eosinophils % (Manual) 0 Basophils % (Manual) 0 Metamyelocytes % 0 Myelocytes % 0 Promyelocytes % 0 Blast Cells % 0 Nucleated RBC % Not Reportable Seg Neutrophils # Man 7.6 Band Neutrophils # 0.0 Lymphocytes # (Manual) 0.7 L Abs React Lymphs (Man) 0.0 Monocytes # (Manual) 0.3 Eosinophils # (Manual) 0.0 Basophils # (Manual) 0.0 Metamyelocytes # 0.0 Myelocytes # 0.0 Promyelocytes # 0.0 Blast Cells # 0.0 WBC Morphology Not Reportable Hypersegmented Neuts Not Reportable Hyposegmented Neuts Not Reportable Hypogranular Neuts Not Reportable Smudge Cells Not Reportable Toxic Granulation Not Reportable Toxic Vacuolation Not Reportable Dohle Bodies Not Reportable Pelger-Huet Anomaly Not Reportable Bethanie Rods Not Reportable Platelet Estimate Not Reportable Clumped Platelets 1+ Plt Clumps, EDTA Not Reportable Large Platelets Not Reportable Giant Platelets Not Reportable Platelet Satelliting Not Reportable Plt Morphology Comment Not Reportable RBC Morphology Not Reportable Dimorphic RBCs Not Reportable Polychromasia Not Reportable Hypochromasia 1+ Poikilocytosis Not Reportable Anisocytosis 1+ Microcytosis Not Reportable Macrocytosis Not Reportable Spherocytes Not Reportable Pappenheimer Bodies Not Reportable Sickle Cells Not Reportable Target Cells Few Tear Drop Cells Not Reportable Ovalocytes Not Reportable Helmet Cells Not Reportable Gauthier-[place] Bodies Not Reportable Varney Rings Not Reportable Kay Cells Not Reportable Bite Cells Not Reportable Crenated Cell Not Reportable Elliptocytes Not Reportable Acanthocytes (Spur) Not Reportable Rouleaux Not Reportable Hemoglobin C Crystals Not Reportable Schistocytes Not Reportable Malaria parasites Not Reportable Jerrell Bodies Not Reportable Hem Pathologist Commnt No Sodium Potassium Chloride Carbon Dioxide Anion Gap BUN Creatinine Estimated GFR BUN/Creatinine Ratio Glucose POC Glucose Hemoglobin A1c Calcium Total Bilirubin AST ALT Alkaline Phosphatase Ammonia Total Protein Albumin Albumin/Globulin Ratio TSH Urine Color Yany Urine Turbidity Clear Urine pH 7.0 Ur Specific [place] 1.004 Urine Protein <15 mg/dl Urine Glucose (UA) Neg Urine Ketones Neg Urine Blood Neg Urine Nitrite Neg Urine Bilirubin Neg Urine Urobilinogen 4.0 Ur Leukocyte Esterase Sm Urine WBC (Auto) 9.0 H Urine RBC (Auto) 3.0 U Epithel Cells (Auto) 1.0 Urine Bacteria (Auto) 2+ Urine Mucus Few Urine Opiates Screen Presumptive negative Urine Methadone Screen Presumptive negative Ur Barbiturates Screen Presumptive negative Ur Phencyclidine Scrn Presumptive negative Ur Amphetamines Screen Presumptive negative U Benzodiazepines Scrn Presumptive negative Urine Cocaine Screen Presumptive negative U Marijuana (THC) Screen Presumptive negative Drugs of Abuse Note Disclamer Plasma/Serum Alcohol Blood Type Antibody Screen Crossmatch 06/23/18 06/23/18 06/23/18 04:30 07:19 08:42 WBC RBC Hgb Hct MCV MCH MCHC RDW Plt Count 159 Add Manual Diff Total Counted Seg Neuts % (Manual) Band Neutrophils % Lymphocytes % (Manual) Reactive Lymphs % (Man) Monocytes % (Manual) Eosinophils % (Manual) Basophils % (Manual) Metamyelocytes % Myelocytes % Promyelocytes % Blast Cells % Nucleated RBC % Seg Neutrophils # Man Band Neutrophils # Lymphocytes # (Manual) Abs React Lymphs (Man) Monocytes # (Manual) Eosinophils # (Manual) Basophils # (Manual) Metamyelocytes # Myelocytes # Promyelocytes # Blast Cells # WBC Morphology Hypersegmented Neuts Hyposegmented Neuts Hypogranular Neuts Smudge Cells Toxic Granulation Toxic Vacuolation Dohle Bodies Pelger-Huet Anomaly Bethanie Rods Platelet Estimate Clumped Platelets Plt Clumps, EDTA Large Platelets Giant Platelets Platelet Satelliting Plt Morphology Comment RBC Morphology Dimorphic RBCs Polychromasia Hypochromasia Poikilocytosis Anisocytosis Microcytosis Macrocytosis Spherocytes Pappenheimer Bodies Sickle Cells Target Cells Tear Drop Cells Ovalocytes Helmet Cells Gauthier-[place] Bodies Varney Rings Kay Cells Bite Cells Crenated Cell Elliptocytes Acanthocytes (Spur) Rouleaux Hemoglobin C Crystals Schistocytes Malaria parasites Jerrell Bodies Hem Pathologist Commnt Sodium 132 L Potassium 3.3 L D Chloride 94.0 L Carbon Dioxide 25 Anion Gap 16 BUN 7 Creatinine 0.3 L Estimated GFR > 60 BUN/Creatinine Ratio 23 Glucose 94 POC Glucose 114 H Hemoglobin A1c Calcium 7.9 L Total Bilirubin 10.30 H AST 51 H ALT 41 Alkaline Phosphatase 121 Ammonia Total Protein 5.4 L Albumin 2.4 L Albumin/Globulin Ratio 0.8 TSH Urine Color Urine Turbidity Urine pH Ur Specific [place] Urine Protein Urine Glucose (UA) Urine Ketones Urine Blood Urine Nitrite Urine Bilirubin Urine Urobilinogen Ur Leukocyte Esterase Urine WBC (Auto) Urine RBC (Auto) U Epithel Cells (Auto) Urine Bacteria (Auto) Urine Mucus Urine Opiates Screen Urine Methadone Screen Ur Barbiturates Screen Ur Phencyclidine Scrn Ur Amphetamines Screen U Benzodiazepines Scrn Urine Cocaine Screen U Marijuana (THC) Screen Drugs of Abuse Note Plasma/Serum Alcohol Blood Type Antibody Screen Crossmatch 06/23/18 06/23/18 08:42 08:50 WBC RBC Hgb Hct MCV MCH MCHC RDW Plt Count Add Manual Diff Total Counted Seg Neuts % (Manual) Band Neutrophils % Lymphocytes % (Manual) Reactive Lymphs % (Man) Monocytes % (Manual) Eosinophils % (Manual) Basophils % (Manual) Metamyelocytes % Myelocytes % Promyelocytes % Blast Cells % Nucleated RBC % Seg Neutrophils # Man Band Neutrophils # Lymphocytes # (Manual) Abs React Lymphs (Man) Monocytes # (Manual) Eosinophils # (Manual) Basophils # (Manual) Metamyelocytes # Myelocytes # Promyelocytes # Blast Cells # WBC Morphology Hypersegmented Neuts Hyposegmented Neuts Hypogranular Neuts Smudge Cells Toxic Granulation Toxic Vacuolation Dohle Bodies Pelger-Huet Anomaly Bethanie Rods Platelet Estimate Clumped Platelets Plt Clumps, EDTA Large Platelets Giant Platelets Platelet Satelliting Plt Morphology Comment RBC Morphology Dimorphic RBCs Polychromasia Hypochromasia Poikilocytosis Anisocytosis Microcytosis Macrocytosis Spherocytes Pappenheimer Bodies Sickle Cells Target Cells Tear Drop Cells Ovalocytes Helmet Cells Gauthier-[place] Bodies Varney Rings Kay Cells Bite Cells Crenated Cell Elliptocytes Acanthocytes (Spur) Rouleaux Hemoglobin C Crystals Schistocytes Malaria parasites Jerrell Bodies Hem Pathologist Commnt Sodium Potassium Chloride Carbon Dioxide Anion Gap BUN Creatinine Estimated GFR BUN/Creatinine Ratio Glucose POC Glucose Hemoglobin A1c Calcium Total Bilirubin AST ALT Alkaline Phosphatase Ammonia 92.0 H Total Protein Albumin Albumin/Globulin Ratio TSH Urine Color Urine Turbidity Urine pH Ur Specific [place] Urine Protein Urine Glucose (UA) Urine Ketones Urine Blood Urine Nitrite Urine Bilirubin Urine Urobilinogen Ur Leukocyte Esterase Urine WBC (Auto) Urine RBC (Auto) U Epithel Cells (Auto) Urine Bacteria (Auto) Urine Mucus Urine Opiates Screen Urine Methadone Screen Ur Barbiturates Screen Ur Phencyclidine Scrn Ur Amphetamines Screen U Benzodiazepines Scrn Urine Cocaine Screen U Marijuana (THC) Screen Drugs of Abuse Note Plasma/Serum Alcohol Blood Type O POSITIVE Antibody Screen Negative Crossmatch See Detail Assessment and Plan 1.hepatic encephalopathy 2.cirrhosis 3.h/o seizure disorder -afebrile -WBC WNL -plt 159 -T.terrell 10.30, AST 51, ALT 41, alk phos 121 -ammonia 92-trending down -H/H 6.8/23.5-no active signs of bleeding (HGB 7.1 earlier this month) -abd U/S-cirrhosis, sludge in GB -etiology-patient with hx of end stage liver disease (cirrhosis 2/2 ETOH abuse) . Patient is not a candidate for transplant due to active alcohol use ( prognosis is poor). -clinically, patient's mental status is improved. Alert and oriented x 3 this am but still agitated. Denies abd pain or N/V. -continue diuretics and lactulose (titrate with goal of BMs x 2-3/day) -start on xifaxan -continue to trend labs and supportive care- will order INR in am -electrolyte management per primary team -will follow <YOEL BRAND - Last Filed: 06/23/18 12:37> Medications and Allergies Active Meds: Active Medications Acetaminophen (Tylenol) 650 mg PO Q4H PRN PRN Reason: Pain MILD(1-3)/Fever >100.5/CARRION Arformoterol Tartrate (Brovana Nebu) 15 mcg IH Q12HRT [facility] Last Admin: 06/23/18 08:31 Dose: 15 mcg Budesonide (Pulmicort) 1 mg IH Q12HRT [facility] Last Admin: 06/23/18 08:30 Dose: 1 mg Famotidine (Pepcid) 20 mg IV BID [facility] Last Admin: 06/23/18 12:12 Dose: 20 mg Furosemide (Lasix) 40 mg PO DAILY [facility] Last Admin: 06/23/18 12:12 Dose: 40 mg Sodium Chloride (Nacl 0.9% 1000 Ml) 1,000 mls @ 42 mls/hr IV DIRECT [facility] Last Admin: 06/23/18 02:14 Dose: 42 mls/hr Lactulose (Cephulac) 20 gm MT Q8H [facility] Last Admin: 06/23/18 05:00 Dose: Not Given Levetiracetam (Keppra) 500 mg PO BID [facility] Last Admin: 06/23/18 12:13 Dose: 500 mg Metolazone (Zaroxolyn) 5 mg PO MoWeFr@1000 [facility] Metoprolol Succinate (Toprol Xl) 25 mg PO DAILY [facility] Last Admin: 06/23/18 12:12 Dose: 25 mg Ondansetron HCl (Zofran) 4 mg IV Q8H PRN PRN Reason: Nausea And Vomiting Rifaximin (Xifaxan) 550 mg PO BID [facility] Sodium Chloride (Sodium Chloride Flush Syringe 10 Ml) 10 ml IV BID [facility] Last Admin: 06/22/18 23:36 Dose: 10 ml Sodium Chloride (Sodium Chloride Flush Syringe 10 Ml) 10 ml IV PRN PRN PRN Reason: LINE FLUSH Spironolactone (Aldactone) 50 mg PO BID [facility] Last Admin: 06/23/18 12:12 Dose: 50 mg Exam - Constitutional Vital Signs: Temp Pulse Resp BP Pulse Ox 98.3 F 115 H 20 117/47 97 06/23/18 11:37 06/23/18 12:12 06/23/18 11:37 06/23/18 12:12 06/23/18 11:37 - Labs CBC & Chem 7: 06/23/18 08:42 06/23/18 04:30 Lab Results: Laboratory Results - last 24 hr 06/22/18 06/22/18 06/22/18 14:11 14:27 14:27 WBC 7.4 RBC 2.85 L Hgb 7.8 L Hct 26.1 L MCV 92 MCH 27 L MCHC 30 RDW 27.0 H Plt Count 183 Add Manual Diff Complete Total Counted 100 Seg Neuts % (Manual) 88.0 H Band Neutrophils % 0 Lymphocytes % (Manual) 4.0 L Reactive Lymphs % (Man) 0 Monocytes % (Manual) 8.0 H Eosinophils % (Manual) 0 Basophils % (Manual) 0 Metamyelocytes % 0 Myelocytes % 0 Promyelocytes % 0 Blast Cells % 0 Nucleated RBC % Not Reportable Seg Neutrophils # Man 6.5 Band Neutrophils # 0.0 Lymphocytes # (Manual) 0.3 L Abs React Lymphs (Man) 0.0 Monocytes # (Manual) 0.6 Eosinophils # (Manual) 0.0 Basophils # (Manual) 0.0 Metamyelocytes # 0.0 Myelocytes # 0.0 Promyelocytes # 0.0 Blast Cells # 0.0 WBC Morphology Not Reportable Hypersegmented Neuts Not Reportable Hyposegmented Neuts Not Reportable Hypogranular Neuts Not Reportable Smudge Cells Not Reportable Toxic Granulation Not Reportable Toxic Vacuolation Not Reportable Dohle Bodies Not Reportable Pelger-Huet Anomaly Not Reportable Bethanie Rods Not Reportable Platelet Estimate Consistent w auto Clumped Platelets Not Reportable Plt Clumps, EDTA Not Reportable Large Platelets Not Reportable Giant Platelets Not Reportable Platelet Satelliting Not Reportable Plt Morphology Comment Not Reportable RBC Morphology Not Reportable Dimorphic RBCs Not Reportable Polychromasia Not Reportable Hypochromasia Not Reportable Poikilocytosis 1+ Anisocytosis 1+ Microcytosis Not Reportable Macrocytosis Not Reportable Spherocytes Few Pappenheimer Bodies Not Reportable Sickle Cells Not Reportable Target Cells Few Tear Drop Cells Not Reportable Ovalocytes Not Reportable Helmet Cells Not Reportable Gauthier-[place] Bodies Not Reportable Varney Rings Not Reportable [place] Cells Not Reportable Bite Cells Not Reportable Crenated Cell Not Reportable Elliptocytes Not Reportable Acanthocytes (Spur) Not Reportable Rouleaux Not Reportable Hemoglobin C Crystals Not Reportable Schistocytes Not Reportable Malaria parasites Not Reportable Jerrell Bodies Not Reportable Hem Pathologist Commnt No Sodium 130 L Potassium 2.5 L* Chloride 85.0 L Carbon Dioxide 28 Anion Gap 20 BUN 8 Creatinine 0.4 L Estimated GFR > 60 BUN/Creatinine Ratio 20 Glucose 116 H POC Glucose Hemoglobin A1c Calcium 8.2 L Total Bilirubin 11.90 H AST 53 H ALT 48 Alkaline Phosphatase 140 H Ammonia Total Protein 6.2 L Albumin 2.7 L Albumin/Globulin Ratio 0.8 TSH Urine Color Urine Turbidity Urine pH Ur Specific [place] Urine Protein Urine Glucose (UA) Urine Ketones Urine Blood Urine Nitrite Urine Bilirubin Urine Urobilinogen Ur Leukocyte Esterase Urine WBC (Auto) Urine RBC (Auto) U Epithel Cells (Auto) Urine Bacteria (Auto) Urine Mucus Urine Opiates Screen Urine Methadone Screen Ur Barbiturates Screen Ur Phencyclidine Scrn Ur Amphetamines Screen U Benzodiazepines Scrn Urine Cocaine Screen U Marijuana (THC) Screen Drugs of Abuse Note Plasma/Serum Alcohol < 0.01 Blood Type Antibody Screen Crossmatch 06/22/18 06/22/18 06/22/18 14:27 14:27 23:12 WBC RBC Hgb Hct MCV MCH MCHC RDW Plt Count Add Manual Diff Total Counted Seg Neuts % (Manual) Band Neutrophils % Lymphocytes % (Manual) Reactive Lymphs % (Man) Monocytes % (Manual) Eosinophils % (Manual) Basophils % (Manual) Metamyelocytes % Myelocytes % Promyelocytes % Blast Cells % Nucleated RBC % Seg Neutrophils # Man Band Neutrophils # Lymphocytes # (Manual) Abs React Lymphs (Man) Monocytes # (Manual) Eosinophils # (Manual) Basophils # (Manual) Metamyelocytes # Myelocytes # Promyelocytes # Blast Cells # WBC Morphology Hypersegmented Neuts Hyposegmented Neuts Hypogranular Neuts Smudge Cells Toxic Granulation Toxic Vacuolation Dohle Bodies Pelger-Huet Anomaly Bethanie Rods Platelet Estimate Clumped Platelets Plt Clumps, EDTA Large Platelets Giant Platelets Platelet Satelliting Plt Morphology Comment RBC Morphology Dimorphic RBCs Polychromasia Hypochromasia Poikilocytosis Anisocytosis Microcytosis Macrocytosis Spherocytes Pappenheimer Bodies Sickle Cells Target Cells Tear Drop Cells Ovalocytes Helmet Cells Gauthier-[place] Bodies Varney Rings Kay Cells Bite Cells Crenated Cell Elliptocytes Acanthocytes (Spur) Rouleaux Hemoglobin C Crystals Schistocytes Malaria parasites Jerrell Bodies Hem Pathologist Commnt Sodium Potassium Chloride Carbon Dioxide Anion Gap BUN Creatinine Estimated GFR BUN/Creatinine Ratio Glucose POC Glucose Hemoglobin A1c < 4.0 L Calcium Total Bilirubin AST ALT Alkaline Phosphatase Ammonia 101.0 H Total Protein Albumin Albumin/Globulin Ratio TSH 3.460 Urine Color Urine Turbidity Urine pH Ur Specific [place] Urine Protein Urine Glucose (UA) Urine Ketones Urine Blood Urine Nitrite Urine Bilirubin Urine Urobilinogen Ur Leukocyte Esterase Urine WBC (Auto) Urine RBC (Auto) U Epithel Cells (Auto) Urine Bacteria (Auto) Urine Mucus Urine Opiates Screen Urine Methadone Screen Ur Barbiturates Screen Ur Phencyclidine Scrn Ur Amphetamines Screen U Benzodiazepines Scrn Urine Cocaine Screen U Marijuana (THC) Screen Drugs of Abuse Note Plasma/Serum Alcohol Blood Type Antibody Screen Crossmatch 06/22/18 06/22/18 06/23/18 Unknown Unknown 04:30 WBC 8.5 RBC 2.45 L Hgb 6.8 L Hct 23.5 L MCV 96 MCH 28 MCHC 29 L RDW 27.5 H Plt Count TNR Add Manual Diff Complete Total Counted 100 Seg Neuts % (Manual) 89.0 H Band Neutrophils % 0 Lymphocytes % (Manual) 8.0 L Reactive Lymphs % (Man) 0 Monocytes % (Manual) 3.0 Eosinophils % (Manual) 0 Basophils % (Manual) 0 Metamyelocytes % 0 Myelocytes % 0 Promyelocytes % 0 Blast Cells % 0 Nucleated RBC % Not Reportable Seg Neutrophils # Man 7.6 Band Neutrophils # 0.0 Lymphocytes # (Manual) 0.7 L Abs React Lymphs (Man) 0.0 Monocytes # (Manual) 0.3 Eosinophils # (Manual) 0.0 Basophils # (Manual) 0.0 Metamyelocytes # 0.0 Myelocytes # 0.0 Promyelocytes # 0.0 Blast Cells # 0.0 WBC Morphology Not Reportable Hypersegmented Neuts Not Reportable Hyposegmented Neuts Not Reportable Hypogranular Neuts Not Reportable Smudge Cells Not Reportable Toxic Granulation Not Reportable Toxic Vacuolation Not Reportable Dohle Bodies Not Reportable Pelger-Huet Anomaly Not Reportable Bethanie Rods Not Reportable Platelet Estimate Not Reportable Clumped Platelets 1+ Plt Clumps, EDTA Not Reportable Large Platelets Not Reportable Giant Platelets Not Reportable Platelet Satelliting Not Reportable Plt Morphology Comment Not Reportable RBC Morphology Not Reportable Dimorphic RBCs Not Reportable Polychromasia Not Reportable Hypochromasia 1+ Poikilocytosis Not Reportable Anisocytosis 1+ Microcytosis Not Reportable Macrocytosis Not Reportable Spherocytes Not Reportable Pappenheimer Bodies Not Reportable Sickle Cells Not Reportable Target Cells Few Tear Drop Cells Not Reportable Ovalocytes Not Reportable Helmet Cells Not Reportable [place]auth[place] Bodies Not Reportable [place] Rings Not Reportable Kay Cells Not Reportable Bite Cells Not Reportable Crenated Cell Not Reportable Elliptocytes Not Reportable Acanthocytes (Spur) Not Reportable Rouleaux Not Reportable Hemoglobin C Crystals Not Reportable Schistocytes Not Reportable Malaria parasites Not Reportable Jerrell Bodies Not Reportable Hem Pathologist Commnt No Sodium Potassium Chloride Carbon Dioxide Anion Gap BUN Creatinine Estimated GFR BUN/Creatinine Ratio Glucose POC Glucose Hemoglobin A1c Calcium Total Bilirubin AST ALT Alkaline Phosphatase Ammonia Total Protein Albumin Albumin/Globulin Ratio TSH Urine Color Yany Urine Turbidity Clear Urine pH 7.0 Ur Specific [place] 1.004 Urine Protein <15 mg/dl Urine Glucose (UA) Neg Urine Ketones Neg Urine Blood Neg Urine Nitrite Neg Urine Bilirubin Neg Urine Urobilinogen 4.0 Ur Leukocyte Esterase Sm Urine WBC (Auto) 9.0 H Urine RBC (Auto) 3.0 U Epithel Cells (Auto) 1.0 Urine Bacteria (Auto) 2+ Urine Mucus Few Urine Opiates Screen Presumptive negative Urine Methadone Screen Presumptive negative Ur Barbiturates Screen Presumptive negative Ur Phencyclidine Scrn Presumptive negative Ur Amphetamines Screen Presumptive negative U Benzodiazepines Scrn Presumptive negative Urine Cocaine Screen Presumptive negative U Marijuana (THC) Screen Presumptive negative Drugs of Abuse Note Disclamer Plasma/Serum Alcohol Blood Type Antibody Screen Crossmatch 06/23/18 06/23/18 06/23/18 04:30 07:19 08:42 WBC RBC Hgb Hct MCV MCH MCHC RDW Plt Count 159 Add Manual Diff Total Counted Seg Neuts % (Manual) Band Neutrophils % Lymphocytes % (Manual) Reactive Lymphs % (Man) Monocytes % (Manual) Eosinophils % (Manual) Basophils % (Manual) Metamyelocytes % Myelocytes % Promyelocytes % Blast Cells % Nucleated RBC % Seg Neutrophils # Man Band Neutrophils # Lymphocytes # (Manual) Abs React Lymphs (Man) Monocytes # (Manual) Eosinophils # (Manual) Basophils # (Manual) Metamyelocytes # Myelocytes # Promyelocytes # Blast Cells # WBC Morphology Hypersegmented Neuts Hyposegmented Neuts Hypogranular Neuts Smudge Cells Toxic Granulation Toxic Vacuolation Dohle Bodies Pelger-Huet Anomaly Bethanie Rods Platelet Estimate Clumped Platelets Plt Clumps, EDTA Large Platelets Giant Platelets Platelet Satelliting Plt Morphology Comment RBC Morphology Dimorphic RBCs Polychromasia Hypochromasia Poikilocytosis Anisocytosis Microcytosis Macrocytosis Spherocytes Pappenheimer Bodies Sickle Cells Target Cells Tear Drop Cells Ovalocytes Helmet Cells Gauthier-[place] Bodies [place] Rings Kay Cells Bite Cells Crenated Cell Elliptocytes Acanthocytes (Spur) Rouleaux Hemoglobin C Crystals Schistocytes Malaria parasites Jerrell Bodies Hem Pathologist Commnt Sodium 132 L Potassium 3.3 L D Chloride 94.0 L Carbon Dioxide 25 Anion Gap 16 BUN 7 Creatinine 0.3 L Estimated GFR > 60 BUN/Creatinine Ratio 23 Glucose 94 POC Glucose 114 H Hemoglobin A1c Calcium 7.9 L Total Bilirubin 10.30 H AST 51 H ALT 41 Alkaline Phosphatase 121 Ammonia Total Protein 5.4 L Albumin 2.4 L Albumin/Globulin Ratio 0.8 TSH Urine Color Urine Turbidity Urine pH Ur Specific [place] Urine Protein Urine Glucose (UA) Urine Ketones Urine Blood Urine Nitrite Urine Bilirubin Urine Urobilinogen Ur Leukocyte Esterase Urine WBC (Auto) Urine RBC (Auto) U Epithel Cells (Auto) Urine Bacteria (Auto) Urine Mucus Urine Opiates Screen Urine Methadone Screen Ur Barbiturates Screen Ur Phencyclidine Scrn Ur Amphetamines Screen U Benzodiazepines Scrn Urine Cocaine Screen U Marijuana (THC) Screen Drugs of Abuse Note Plasma/Serum Alcohol Blood Type Antibody Screen Crossmatch 06/23/18 06/23/18 06/23/18 08:42 08:50 11:37 WBC RBC Hgb Hct MCV MCH MCHC RDW Plt Count Add Manual Diff Total Counted Seg Neuts % (Manual) Band Neutrophils % Lymphocytes % (Manual) Reactive Lymphs % (Man) Monocytes % (Manual) Eosinophils % (Manual) Basophils % (Manual) Metamyelocytes % Myelocytes % Promyelocytes % Blast Cells % Nucleated RBC % Seg Neutrophils # Man Band Neutrophils # Lymphocytes # (Manual) Abs React Lymphs (Man) Monocytes # (Manual) Eosinophils # (Manual) Basophils # (Manual) Metamyelocytes # Myelocytes # Promyelocytes # Blast Cells # WBC Morphology Hypersegmented Neuts Hyposegmented Neuts Hypogranular Neuts Smudge Cells Toxic Granulation Toxic Vacuolation Dohle Bodies Pelger-Huet Anomaly Bethanie Rods Platelet Estimate Clumped Platelets Plt Clumps, EDTA Large Platelets Giant Platelets Platelet Satelliting Plt Morphology Comment RBC Morphology Dimorphic RBCs Polychromasia Hypochromasia Poikilocytosis Anisocytosis Microcytosis Macrocytosis Spherocytes Pappenheimer Bodies Sickle Cells Target Cells Tear Drop Cells Ovalocytes Helmet Cells Gauthier-[place] Bodies Varney Rings [place] Cells Bite Cells Crenated Cell Elliptocytes Acanthocytes (Spur) Rouleaux Hemoglobin C Crystals Schistocytes Malaria parasites Jerrell Bodies Hem Pathologist Commnt Sodium Potassium Chloride Carbon Dioxide Anion Gap BUN Creatinine Estimated GFR BUN/Creatinine Ratio Glucose POC Glucose 105 Hemoglobin A1c Calcium Total Bilirubin AST ALT Alkaline Phosphatase Ammonia 92.0 H Total Protein Albumin Albumin/Globulin Ratio TSH Urine Color Urine Turbidity Urine pH Ur Specific [place] Urine Protein Urine Glucose (UA) Urine Ketones Urine Blood Urine Nitrite Urine Bilirubin Urine Urobilinogen Ur Leukocyte Esterase Urine WBC (Auto) Urine RBC (Auto) U Epithel Cells (Auto) Urine Bacteria (Auto) Urine Mucus Urine Opiates Screen Urine Methadone Screen Ur Barbiturates Screen Ur Phencyclidine Scrn Ur Amphetamines Screen U Benzodiazepines Scrn Urine Cocaine Screen U Marijuana (THC) Screen Drugs of Abuse Note Plasma/Serum Alcohol Blood Type O POSITIVE Antibody Screen Negative Crossmatch See Detail Assessment and Plan - Patient Problems (1) Acute hepatic encephalopathy Current Visit: Yes Status: Acute (2) Liver cirrhosis Current Visit: Yes Status: Acute Qualifiers: Hepatic cirrhosis type: alcoholic cirrhosis Ascites presence: without ascites Qualified Code(s): K70.30 - Alcoholic cirrhosis of liver without ascites (3) Cirrhosis of liver with ascites Current Visit: Yes Status: Chronic Qualifiers: Hepatic cirrhosis type: alcoholic cirrhosis Qualified Code(s): K70.31 - Alcoholic cirrhosis of liver with ascites Impression/Plan - Impression Impression: 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 Still actively drinking. Patient well known to me with a poor track record of follow up care and no desire to consider rehab to alcoholism. I have tried to reach her significant partner unsuccessfully. There is little to offer her other than supportive care. Will add Rifixamin, Lactulose, encourage an ETOH rehab program. The prognosis is very poor at this point. Thank you for asking me to see her in consultation. Yoel Brand MD [facility]
[2018-06-23] MEDS ORDERED: NACL 0.9% 500 ML 500 ML IV ONE (11:00)
[2018-06-23] MEDS: ALDACTONE PO SCH ×2 (12:12→22:11)
[2018-06-23] MEDS: TOPROL XL PO SCH (12:12)
[2018-06-23] MEDS: PEPCID IV SCH (12:12)
[2018-06-23] MEDS: KEPPRA PO SCH ×2 (12:13→22:14)
[2018-06-23] MEDS: CEPHULAC PO SCH ×2 (17:10→22:14)
[2018-06-23] MEDS: SODIUM CHLORIDE FLUSH SYRINGE 10 ML IV SCH ×2 (17:10→22:14)
[2018-06-23] MEDS: HABITROL TD SCH (17:11)
[2018-06-23] MEDS: PEPCID PO SCH (22:14)
[2018-06-23] MEDS: XIFAXAN PO SCH (22:14)
[2018-06-23] MEDS: ATIVAN IV PRN (23:02)
[2018-06-24] MEDS: CEPHULAC PO SCH ×3 (05:41→22:12)
[2018-06-24] MEDS: ATIVAN IV PRN (05:56)
[2018-06-24 07:17] LABS: Hematocrit 28.7 % (30.3-42.9); Hemoglobin 8.7 gm/dl (10.1-14.3); Mean Corpuscular HGB Conc 30 % (30-34); Mean Corpuscular Hemoglobin 28 pg (28-32); Mean Corpuscular Volume 94 fl (79-97); Platelet Count 141 K/mm3 (140-440); Red Blood Count 3.05 M/mm3 (3.65-5.03)
[2018-06-24 07:19] LABS: Red Cell Distribution Width 24.4 % (13.2-15.2)
[2018-06-24 07:25] LABS: INR 1.8 (0.87-1.13)
[2018-06-24 07:32] LABS: Alanine Aminotransferase 42 units/L (7-56); Albumin 2.5 g/dL (3.9-5); BUN/Creatinine Ratio 20; Blood Urea Nitrogen 4 mg/dL (7-17); Calcium 8.4 mg/dL (8.4-10.2); Hemolysis Index 19
[2018-06-24] MEDS: PULMICORT IH SCH ×2 (08:54→20:23)
[2018-06-24] MEDS: BROVANA NEBU IH SCH ×2 (08:54→20:23)
--- NOTE | 2018-06-24 08:57 | Progress Note ---
Assessment and Plan Assessment and plan: --Hepatic encephalopathy; trending down to 92-68 On lactulose, monitor ammonia levels --End-stage liver failure /Cirrhosis liver/hyper bilirubinemia Continue current management, GI consulted Follow GI evaluation and recommendations --Hypokalemia; replace per protocol and monitor levels --Hypomagnesemia ;magnesium sulfate replacement per protocol --Hyponatremia; mild improvement Continue diuretics, closely monitor electrolytes --Hypertension; moderate control, continue current antihypertensives When necessary medications --Anemia; hemoglobin today is 6.8 Improved to 8, after 1 unit of PRBC transfusion yesterday --History of seizure disorder; Seizure precautions, continue antiepileptic medication, --AV and malnutrition/hypoalbuminemia; Supportive care, nutrition consult --DVT prophylaxis; SCDs, no pharmacologic anticoagulation in view of thrombocytopenia --DO NOT RESUSCITATE Very poor prognosis Recommend hospice and comfort care Closely monitor the patient and adjust management as needed History Interval history: Patient seen and examined medical records reviewed No new events reported by the nursing Patient is comfortable, sometimes agitated and confused Mild improvement of ammonia levels Vital signs noted Hospitalist Physical - Constitutional Vitals: Temp Pulse Resp BP Pulse Ox 97.7 F 103 H 18 123/70 98 06/24/18 05:47 06/24/18 05:47 06/24/18 05:47 06/24/18 05:47 06/24/18 05:47 General appearance: Present: no acute distress, well-nourished, other ( minimally communicative, confused at times) - EENT Eyes: Present: PERRL, EOM intact - Neck Neck: Present: supple, normal ROM - Respiratory Respiratory effort: normal Respiratory: bilateral: diminished, rales, negative: rhonchi, wheezing - Cardiovascular Rhythm: regular Heart Sounds: Present: S1 & S2 - Extremities Extremities: no ischemia, No edema Extremity abnormal: edema - Abdominal General gastrointestinal: soft, non-tender, non-distended, normal bowel sounds - Integumentary Integumentary: Present: clear, jaundice - Psychiatric Psychiatric: other (minimally communicative, confused) - Neurologic Neurologic: moves all extremities Results - Labs CBC & Chem 7: 06/24/18 06:37 06/24/18 06:37 Labs: Laboratory Last Values WBC 8.8 K/mm3 (4.5-11.0) 06/24/18 06:37 RBC 3.05 M/mm3 (3.65-5.03) L 06/24/18 06:37 Hgb 8.7 gm/dl (10.1-14.3) L 06/24/18 06:37 Hct 28.7 % (30.3-42.9) L 06/24/18 06:37 MCV 94 fl (79-97) 06/24/18 06:37 MCH 28 pg (28-32) 06/24/18 06:37 MCHC 30 % (30-34) 06/24/18 06:37 RDW 24.4 % (13.2-15.2) H 06/24/18 06:37 Plt Count 141 K/mm3 (140-440) 06/24/18 06:37 Add Manual Diff Complete 06/23/18 04:30 Total Counted 100 06/23/18 04:30 Seg Neuts % (Manual) 89.0 % (40.0-70.0) H 06/23/18 04:30 Band Neutrophils % 0 % 06/23/18 04:30 Lymphocytes % (Manual) 8.0 % (13.4-35.0) L 06/23/18 04:30 Reactive Lymphs % (Man) 0 % 06/23/18 04:30 Monocytes % (Manual) 3.0 % (0.0-7.3) 06/23/18 04:30 Eosinophils % (Manual) 0 % (0.0-4.3) 06/23/18 04:30 Basophils % (Manual) 0 % (0.0-1.8) 06/23/18 04:30 Metamyelocytes % 0 % 06/23/18 04:30 Myelocytes % 0 % 06/23/18 04:30 Promyelocytes % 0 % 06/23/18 04:30 Blast Cells % 0 % 06/23/18 04:30 Nucleated RBC % Not Reportable 06/23/18 04:30 Seg Neutrophils # Man 7.6 K/mm3 (1.8-7.7) 06/23/18 04:30 Band Neutrophils # 0.0 K/mm3 06/23/18 04:30 Lymphocytes # (Manual) 0.7 K/mm3 (1.2-5.4) L 06/23/18 04:30 Abs React Lymphs (Man) 0.0 K/mm3 06/23/18 04:30 Monocytes # (Manual) 0.3 K/mm3 (0.0-0.8) 06/23/18 04:30 Eosinophils # (Manual) 0.0 K/mm3 (0.0-0.4) 06/23/18 04:30 Basophils # (Manual) 0.0 K/mm3 (0.0-0.1) 06/23/18 04:30 Metamyelocytes # 0.0 K/mm3 06/23/18 04:30 Myelocytes # 0.0 K/mm3 06/23/18 04:30 Promyelocytes # 0.0 K/mm3 06/23/18 04:30 Blast Cells # 0.0 K/mm3 06/23/18 04:30 WBC Morphology Not Reportable 06/23/18 04:30 Hypersegmented Neuts Not Reportable 06/23/18 04:30 Hyposegmented Neuts Not Reportable 06/23/18 04:30 Hypogranular Neuts Not Reportable 06/23/18 04:30 Smudge Cells Not Reportable 06/23/18 04:30 Toxic Granulation Not Reportable 06/23/18 04:30 Toxic Vacuolation Not Reportable 06/23/18 04:30 Dohle Bodies Not Reportable 06/23/18 04:30 Pelger-Huet Anomaly Not Reportable 06/23/18 04:30 Bethanie Rods Not Reportable 06/23/18 04:30 Platelet Estimate Not Reportable 06/23/18 04:30 Clumped Platelets 1+ 06/23/18 04:30 Plt Clumps, EDTA Not Reportable 06/23/18 04:30 Large Platelets Not Reportable 06/23/18 04:30 Giant Platelets Not Reportable 06/23/18 04:30 Platelet Satelliting Not Reportable 06/23/18 04:30 Plt Morphology Comment Not Reportable 06/23/18 04:30 RBC Morphology Not Reportable 06/23/18 04:30 Dimorphic RBCs Not Reportable 06/23/18 04:30 Polychromasia Not Reportable 06/23/18 04:30 Hypochromasia 1+ 06/23/18 04:30 Poikilocytosis Not Reportable 06/23/18 04:30 Anisocytosis 1+ 06/23/18 04:30 Microcytosis Not Reportable 06/23/18 04:30 Macrocytosis Not Reportable 06/23/18 04:30 Spherocytes Not Reportable 06/23/18 04:30 Pappenheimer Bodies Not Reportable 06/23/18 04:30 Sickle Cells Not Reportable 06/23/18 04:30 Target Cells Few 06/23/18 04:30 Tear Drop Cells Not Reportable 06/23/18 04:30 Ovalocytes Not Reportable 06/23/18 04:30 Helmet Cells Not Reportable 06/23/18 04:30 Gauthier-[place] Bodies Not Reportable 06/23/18 04:30 [place] Rings Not Reportable 06/23/18 04:30 [place] Cells Not Reportable 06/23/18 04:30 Bite Cells Not Reportable 06/23/18 04:30 Crenated Cell Not Reportable 06/23/18 04:30 Elliptocytes Not Reportable 06/23/18 04:30 Acanthocytes (Spur) Not Reportable 06/23/18 04:30 Rouleaux Not Reportable 06/23/18 04:30 Hemoglobin C Crystals Not Reportable 06/23/18 04:30 Schistocytes Not Reportable 06/23/18 04:30 Malaria parasites Not Reportable 06/23/18 04:30 Jerrell Bodies Not Reportable 06/23/18 04:30 Hem Pathologist Commnt No 06/23/18 04:30 PT 21.5 Sec. (12.2-14.9) H 06/24/18 06:37 INR 1.80 (0.87-1.13) H 06/24/18 06:37 Sodium 137 mmol/L (137-145) 06/24/18 06:37 Potassium 3.2 mmol/L (3.6-5.0) L 06/24/18 06:37 Chloride 97.3 mmol/L (98-107) L 06/24/18 06:37 Carbon Dioxide 27 mmol/L (22-30) 06/24/18 06:37 Anion Gap 16 mmol/L 06/24/18 06:37 BUN 4 mg/dL (7-17) L 06/24/18 06:37 Creatinine < 0.2 mg/dL (0.7-1.2) L 06/24/18 06:37 Estimated GFR > 60 ml/min 06/24/18 06:37 BUN/Creatinine Ratio 20 % 06/24/18 06:37 Glucose 101 mg/dL (65-100) H 06/24/18 06:37 POC Glucose 143 (70-105) H 06/23/18 16:28 Hemoglobin A1c < 4.0 % (4-6) L 06/22/18 23:12 Calcium 8.4 mg/dL (8.4-10.2) 06/24/18 06:37 Magnesium 1.60 mg/dL (1.7-2.3) L 06/24/18 06:37 Total Bilirubin 11.70 mg/dL (0.1-1.2) H 06/24/18 06:37 AST 53 units/L (5-40) H 06/24/18 06:37 ALT 42 units/L (7-56) 06/24/18 06:37 Alkaline Phosphatase 121 units/L (35-129) 06/24/18 06:37 Ammonia 68.0 umol/L (25-60) H 06/24/18 06:37 Total Protein 5.5 g/dL (6.3-8.2) L 06/24/18 06:37 Albumin 2.5 g/dL (3.9-5) L 06/24/18 06:37 Albumin/Globulin Ratio 0.8 % 06/24/18 06:37 TSH 3.460 mlU/mL (0.270-4.200) 06/22/18 14:27 Urine Color Yany (Yellow) 06/22/18 Unknown Urine Turbidity Clear (Clear) 06/22/18 Unknown Urine pH 7.0 (5.0-7.0) 06/22/18 Unknown Ur Specific [place] 1.004 (1.003-1.030) 06/22/18 Unknown Urine Protein <15 mg/dl mg/dL (Negative) 06/22/18 Unknown Urine Glucose (UA) Neg mg/dL (Negative) 06/22/18 Unknown Urine Ketones Neg mg/dL (Negative) 06/22/18 Unknown Urine Blood Neg (Negative) 06/22/18 Unknown Urine Nitrite Neg (Negative) 06/22/18 Unknown Urine Bilirubin Neg (Negative) 06/22/18 Unknown Urine Urobilinogen 4.0 mg/dL (<2.0) 06/22/18 Unknown Ur Leukocyte Esterase Sm (Negative) 06/22/18 Unknown Urine WBC (Auto) 9.0 /HPF (0.0-6.0) H 06/22/18 Unknown Urine RBC (Auto) 3.0 /HPF (0.0-6.0) 06/22/18 Unknown U Epithel Cells (Auto) 1.0 /HPF (0-13.0) 06/22/18 Unknown Urine Bacteria (Auto) 2+ /HPF (Negative) 06/22/18 Unknown Urine Mucus Few /HPF 06/22/18 Unknown Urine Opiates Screen Presumptive negative 06/22/18 Unknown Urine Methadone Screen Presumptive negative 06/22/18 Unknown Ur Barbiturates Screen Presumptive negative 06/22/18 Unknown Ur Phencyclidine Scrn Presumptive negative 06/22/18 Unknown Ur Amphetamines Screen Presumptive negative 06/22/18 Unknown U Benzodiazepines Scrn Presumptive negative 06/22/18 Unknown Urine Cocaine Screen Presumptive negative 06/22/18 Unknown U Marijuana (THC) Screen Presumptive negative 06/22/18 Unknown Drugs of Abuse Note Disclamer 06/22/18 Unknown Plasma/Serum Alcohol < 0.01 % (0-0.07) 06/22/18 14:11 Blood Type O POSITIVE 06/23/18 08:50 Antibody Screen Negative 06/23/18 08:50 Crossmatch See Detail 06/23/18 08:50
[2018-06-24 09:47] LABS: Basophils % (Manual) 0 % (0.0-1.8); Eosinophils % (Manual) 0 % (0.0-4.3); Total Cells Counted 100
[2018-06-24 09:48] LABS: Anisocytosis 1+; Platelet Estimate Consistent w Auto; Stomatocytes Few
[2018-06-24 09:49] LABS: Ovalocytes Few; Spherocytes Few; Target Cells Few
[2018-06-24] MEDS ORDERED: K-DUR PO ONE (10:00)
[2018-06-24] MEDS ORDERED: MAGNESIUM SULFATE 2GM/50ML 2 GM/50 ML BAG IV ONE (10:30)
--- NOTE | 2018-06-24 10:58 | Gastroenterology Progress Note ---
<WESLEYZAYRABRAN Moraelz - Last Filed: 06/24/18 10:58> Assessment and Plan 1.hepatic encephalopathy 2.cirrhosis 3.h/o seizure disorder -afebrile -WBC WNL -plt 141, INR 1.80 -T.terrell 11.70, AST 53, ALT 42, alk phos 121 -ammonia 68-trending down -H/H 8.7/28.7-s/p transfusion 1 unit PRBCs -no active signs of bleeding -abd U/S-cirrhosis, sludge in GB -etiology-patient with hx of end stage liver disease (cirrhosis 2/2 ETOH abuse) . Patient is not a candidate for transplant due to active alcohol use. -continue diuretics, xifaxan, and lactulose (titrate with goal of BMs x 2-3/day) -continue to trend labs and supportive care- will order INR in am -electrolyte management per primary team -prognosis is poor -hospice as been recommended Subjective Date of service: 06/24/18 Principal diagnosis: hepatic encephalopathy Interval history: No acute distress. Patient somnolent and minimally communicative. Denies abd pain, N/V, or active signs of bleeding. Objective - Constitutional Vitals: Temp Pulse Resp BP Pulse Ox 97.7 F 79 17 123/70 98 06/24/18 05:47 06/24/18 09:16 06/24/18 09:16 06/24/18 05:47 06/24/18 05:47 General appearance: no acute distress, other (somnolent) - EENT Eyes: scleral icterus - Respiratory Respiratory: bilateral: CTA (anterior) - Cardiovascular Rhythm: other (tachycardia) - Gastrointestinal General gastrointestinal: Present: soft, non-tender, non-distended, normal bowel sounds - Labs CBC & Chem 7: 06/24/18 06:37 06/24/18 06:37 Labs: Laboratory Results - last 24 hr 06/23/18 06/23/18 06/23/18 08:50 11:37 16:28 WBC RBC Hgb Hct MCV MCH MCHC RDW Plt Count Add Manual Diff Total Counted Seg Neuts % (Manual) Band Neutrophils % Lymphocytes % (Manual) Reactive Lymphs % (Man) Monocytes % (Manual) Eosinophils % (Manual) Basophils % (Manual) Metamyelocytes % Myelocytes % Promyelocytes % Blast Cells % Nucleated RBC % Seg Neutrophils # Man Band Neutrophils # Lymphocytes # (Manual) Abs React Lymphs (Man) Monocytes # (Manual) Eosinophils # (Manual) Basophils # (Manual) Metamyelocytes # Myelocytes # Promyelocytes # Blast Cells # WBC Morphology Hypersegmented Neuts Hyposegmented Neuts Hypogranular Neuts Smudge Cells Toxic Granulation Toxic Vacuolation Dohle Bodies Pelger-Huet Anomaly Bethanie Rods Platelet Estimate Clumped Platelets Plt Clumps, EDTA Large Platelets Giant Platelets Platelet Satelliting Plt Morphology Comment RBC Morphology Dimorphic RBCs Polychromasia Hypochromasia Poikilocytosis Anisocytosis Microcytosis Macrocytosis Spherocytes Pappenheimer Bodies Sickle Cells Target Cells Tear Drop Cells Ovalocytes Stomatocytes Helmet Cells Gauth[place] Bodies [place] Cells Bite Cells Crenated Cell Elliptocytes Acanthocytes (Spur) Rouleaux Hemoglobin C Crystals Schistocytes Malaria parasites Jerrell Bodies Hem Pathologist Commnt PT INR Sodium Potassium Chloride Carbon Dioxide Anion Gap BUN Creatinine Estimated GFR BUN/Creatinine Ratio Glucose POC Glucose 105 143 H Calcium Magnesium Total Bilirubin AST ALT Alkaline Phosphatase Ammonia Total Protein Albumin Albumin/Globulin Ratio Blood Type O POSITIVE Antibody Screen Negative Crossmatch See Detail 06/24/18 06/24/18 06/24/18 06:37 06:37 06:37 WBC 8.8 RBC 3.05 L Hgb 8.7 L Hct 28.7 L MCV 94 MCH 28 MCHC 30 RDW 24.4 H Plt Count 141 Add Manual Diff Complete Total Counted 100 Seg Neuts % (Manual) 92.0 H Band Neutrophils % 0 Lymphocytes % (Manual) 4.0 L Reactive Lymphs % (Man) 0 Monocytes % (Manual) 4.0 Eosinophils % (Manual) 0 Basophils % (Manual) 0 Metamyelocytes % 0 Myelocytes % 0 Promyelocytes % 0 Blast Cells % 0 Nucleated RBC % Not Reportable Seg Neutrophils # Man 8.1 H Band Neutrophils # 0.0 Lymphocytes # (Manual) 0.4 L Abs React Lymphs (Man) 0.0 Monocytes # (Manual) 0.4 Eosinophils # (Manual) 0.0 Basophils # (Manual) 0.0 Metamyelocytes # 0.0 Myelocytes # 0.0 Promyelocytes # 0.0 Blast Cells # 0.0 WBC Morphology Not Reportable Hypersegmented Neuts Not Reportable Hyposegmented Neuts Not Reportable Hypogranular Neuts Not Reportable Smudge Cells Not Reportable Toxic Granulation Not Reportable Toxic Vacuolation Not Reportable Dohle Bodies Not Reportable Pelger-Huet Anomaly Not Reportable Bethanie Rods Not Reportable Platelet Estimate Consistent w auto Clumped Platelets Not Reportable Plt Clumps, EDTA Not Reportable Large Platelets Not Reportable Giant Platelets Not Reportable Platelet Satelliting Not Reportable Plt Morphology Comment Not Reportable RBC Morphology Not Reportable Dimorphic RBCs Not Reportable Polychromasia Not Reportable Hypochromasia Not Reportable Poikilocytosis Not Reportable Anisocytosis 1+ Microcytosis Not Reportable Macrocytosis Not Reportable Spherocytes Few Pappenheimer Bodies Not Reportable Sickle Cells Not Reportable Target Cells Few Tear Drop Cells Not Reportable Ovalocytes Few Stomatocytes Few Helmet Cells Not Reportable Gauth[place] Bodies Not Reportable [place] Rings Not Reportable Kay Cells Not Reportable Bite Cells Not Reportable Crenated Cell Not Reportable Elliptocytes Not Reportable Acanthocytes (Spur) Not Reportable Rouleaux Not Reportable Hemoglobin C Crystals Not Reportable Schistocytes Not Reportable Malaria parasites Not Reportable Jerrell Bodies Not Reportable Hem Pathologist Commnt No PT 21.5 H INR 1.80 H Sodium 137 Potassium 3.2 L Chloride 97.3 L Carbon Dioxide 27 Anion Gap 16 BUN 4 L Creatinine < 0.2 L Estimated GFR > 60 BUN/Creatinine Ratio 20 Glucose 101 H POC Glucose Calcium 8.4 Magnesium 1.60 L Total Bilirubin 11.70 H AST 53 H ALT 42 Alkaline Phosphatase 121 Ammonia Total Protein 5.5 L Albumin 2.5 L Albumin/Globulin Ratio 0.8 Blood Type Antibody Screen Crossmatch 06/24/18 06:37 WBC RBC Hgb Hct MCV MCH MCHC RDW Plt Count Add Manual Diff Total Counted Seg Neuts % (Manual) Band Neutrophils % Lymphocytes % (Manual) Reactive Lymphs % (Man) Monocytes % (Manual) Eosinophils % (Manual) Basophils % (Manual) Metamyelocytes % Myelocytes % Promyelocytes % Blast Cells % Nucleated RBC % Seg Neutrophils # Man Band Neutrophils # Lymphocytes # (Manual) Abs React Lymphs (Man) Monocytes # (Manual) Eosinophils # (Manual) Basophils # (Manual) Metamyelocytes # Myelocytes # Promyelocytes # Blast Cells # WBC Morphology Hypersegmented Neuts Hyposegmented Neuts Hypogranular Neuts Smudge Cells Toxic Granulation Toxic Vacuolation Dohle Bodies Pelger-Huet Anomaly Bethanie Rods Platelet Estimate Clumped Platelets Plt Clumps, EDTA Large Platelets Giant Platelets Platelet Satelliting Plt Morphology Comment RBC Morphology Dimorphic RBCs Polychromasia Hypochromasia Poikilocytosis Anisocytosis Microcytosis Macrocytosis Spherocytes Pappenheimer Bodies Sickle Cells Target Cells Tear Drop Cells Ovalocytes Stomatocytes Helmet Cells [place]auth[place] Bodies [place] Kay Cells Bite Cells Crenated Cell Elliptocytes Acanthocytes (Spur) Rouleaux Hemoglobin C Crystals Schistocytes Malaria parasites Jerrell Bodies Hem Pathologist Commnt PT INR Sodium Potassium Chloride Carbon Dioxide Anion Gap BUN Creatinine Estimated GFR BUN/Creatinine Ratio Glucose POC Glucose Calcium Magnesium Total Bilirubin AST ALT Alkaline Phosphatase Ammonia 68.0 H Total Protein Albumin Albumin/Globulin Ratio Blood Type Antibody Screen Crossmatch <YOEL CLARKE - Last Filed: 06/24/18 13:30> Assessment and Plan - Patient Problems (1) Acute hepatic encephalopathy Current Visit: Yes Status: Acute (2) Liver cirrhosis Current Visit: Yes Status: Acute Qualifiers: Hepatic cirrhosis type: alcoholic cirrhosis Ascites presence: without ascites Qualified Code(s): K70.30 - Alcoholic cirrhosis of liver without ascites Plan to address problem: End stage liver disease. More encephalopathic today due to Ativan given this morning. I discussed care with the patient's boyfriend and hospice evaluation and consideration is in progress. The patient has been in hospice in the past and that is the only time she has stopped drinking. (3) Cirrhosis of liver with ascites Current Visit: Yes Status: Chronic Qualifiers: Hepatic cirrhosis type: alcoholic cirrhosis Qualified Code(s): K70.31 - Alcoholic cirrhosis of liver with ascites Objective - Constitutional Vitals: Temp Pulse Resp BP Pulse Ox 98.5 F 113 H 18 123/65 97 06/24/18 11:28 06/24/18 11:31 06/24/18 11:28 06/24/18 11:31 06/24/18 11:28 - Labs CBC & Chem 7: 06/24/18 06:37 06/24/18 06:37 Labs: Laboratory Results - last 24 hr 06/23/18 06/23/18 06/24/18 08:50 16:28 06:37 WBC 8.8 RBC 3.05 L Hgb 8.7 L Hct 28.7 L MCV 94 MCH 28 MCHC 30 RDW 24.4 H Plt Count 141 Add Manual Diff Complete Total Counted 100 Seg Neuts % (Manual) 92.0 H Band Neutrophils % 0 Lymphocytes % (Manual) 4.0 L Reactive Lymphs % (Man) 0 Monocytes % (Manual) 4.0 Eosinophils % (Manual) 0 Basophils % (Manual) 0 Metamyelocytes % 0 Myelocytes % 0 Promyelocytes % 0 Blast Cells % 0 Nucleated RBC % Not Reportable Seg Neutrophils # Man 8.1 H Band Neutrophils # 0.0 Lymphocytes # (Manual) 0.4 L Abs React Lymphs (Man) 0.0 Monocytes # (Manual) 0.4 Eosinophils # (Manual) 0.0 Basophils # (Manual) 0.0 Metamyelocytes # 0.0 Myelocytes # 0.0 Promyelocytes # 0.0 Blast Cells # 0.0 WBC Morphology Not Reportable Hypersegmented Neuts Not Reportable Hyposegmented Neuts Not Reportable Hypogranular Neuts Not Reportable Smudge Cells Not Reportable Toxic Granulation Not Reportable Toxic Vacuolation Not Reportable Dohle Bodies Not Reportable Pelger-Huet Anomaly Not Reportable Bethanie Rods Not Reportable Platelet Estimate Consistent w auto Clumped Platelets Not Reportable Plt Clumps, EDTA Not Reportable Large Platelets Not Reportable Giant Platelets Not Reportable Platelet Satelliting Not Reportable Plt Morphology Comment Not Reportable RBC Morphology Not Reportable Dimorphic RBCs Not Reportable Polychromasia Not Reportable Hypochromasia Not Reportable Poikilocytosis Not Reportable Anisocytosis 1+ Microcytosis Not Reportable Macrocytosis Not Reportable Spherocytes Few Pappenheimer Bodies Not Reportable Sickle Cells Not Reportable Target Cells Few Tear Drop Cells Not Reportable Ovalocytes Few Stomatocytes Few Helmet Cells Not Reportable Gauth[place] Bodies Not Reportable [place] Not Reportable [place] Cells Not Reportable Bite Cells Not Reportable Crenated Cell Not Reportable Elliptocytes Not Reportable Acanthocytes (Spur) Not Reportable Rouleaux Not Reportable Hemoglobin C Crystals Not Reportable Schistocytes Not Reportable Malaria parasites Not Reportable Jerrell Bodies Not Reportable Hem Pathologist Commnt No PT INR Sodium Potassium Chloride Carbon Dioxide Anion Gap BUN Creatinine Estimated GFR BUN/Creatinine Ratio Glucose POC Glucose 143 H Calcium Magnesium Total Bilirubin AST ALT Alkaline Phosphatase Ammonia Total Protein Albumin Albumin/Globulin Ratio Blood Type O POSITIVE Antibody Screen Negative Crossmatch See Detail 06/24/18 06/24/18 06/24/18 06:37 06:37 06:37 WBC RBC Hgb Hct MCV MCH MCHC RDW Plt Count Add Manual Diff Total Counted Seg Neuts % (Manual) Band Neutrophils % Lymphocytes % (Manual) Reactive Lymphs % (Man) Monocytes % (Manual) Eosinophils % (Manual) Basophils % (Manual) Metamyelocytes % Myelocytes % Promyelocytes % Blast Cells % Nucleated RBC % Seg Neutrophils # Man Band Neutrophils # Lymphocytes # (Manual) Abs React Lymphs (Man) Monocytes # (Manual) Eosinophils # (Manual) Basophils # (Manual) Metamyelocytes # Myelocytes # Promyelocytes # Blast Cells # WBC Morphology Hypersegmented Neuts Hyposegmented Neuts Hypogranular Neuts Smudge Cells Toxic Granulation Toxic Vacuolation Dohle Bodies Pelger-Huet Anomaly Bethanie Rods Platelet Estimate Clumped Platelets Plt Clumps, EDTA Large Platelets Giant Platelets Platelet Satelliting Plt Morphology Comment RBC Morphology Dimorphic RBCs Polychromasia Hypochromasia Poikilocytosis Anisocytosis Microcytosis Macrocytosis Spherocytes Pappenheimer Bodies Sickle Cells Target Cells Tear Drop Cells Ovalocytes Stomatocytes Helmet Cells Gauth[place] Bodies [place] Kay Cells Bite Cells Crenated Cell Elliptocytes Acanthocytes (Spur) Rouleaux Hemoglobin C Crystals Schistocytes Malaria parasites Jerrell Bodies Hem Pathologist Commnt PT 21.5 H INR 1.80 H Sodium 137 Potassium 3.2 L Chloride 97.3 L Carbon Dioxide 27 Anion Gap 16 BUN 4 L Creatinine < 0.2 L Estimated GFR > 60 BUN/Creatinine Ratio 20 Glucose 101 H POC Glucose Calcium 8.4 Magnesium 1.60 L Total Bilirubin 11.70 H AST 53 H ALT 42 Alkaline Phosphatase 121 Ammonia 68.0 H Total Protein 5.5 L Albumin 2.5 L Albumin/Globulin Ratio 0.8 Blood Type Antibody Screen Crossmatch
--- NOTE | 2018-06-24 11:00 | Query- Nutrition ---
Warren Mar Oumar Date:___06/24/18 [employer] Operator/CDS:__joaquin Phone#:___[phone] Exercise your independent professional judgment when responding to query. Questions asked do not imply a particular answer is desired or expected. We greatly appreciate your clarification on this issue. Clinical Documentation States: 58-year-old female with history of end-stage liver disease brought in from home for severe confusion and agitation and altered sensorium. Assessment and plan: --Hypokalemia; replaced per protocol and monitor levels Check magnesium --Hyponatremia; secondary to fluid overload On diuretics, minimal improvement, closely monitor electrolytes --Hepatic encephalopathy; Continue supportive care, monitor ammonia levels Continue lactulose --Cirrhosis liver/hyper bilirubinemia --AV and malnutrition/hypoalbuminemia; Clinical Findings Show: 06/22/18 06/23/18 06/24/18 Albumin 2.7 2.4 2.5 Please select the most appropriate option 3 [ ] Mild Malnutrition [ ] Moderate Malnutrition [x ] Severe Malnutrition Serum Albumin 2.8 to 3.4 g/dl or Pre-albumin 5 to 17 mg/dl1,2 Inadequate nutritional intake1,2,3,4 NPO > 5 days Weight loss: 5% in 1 month or 7.5% in 3 months or 10% in 6 months1, 3,4 BMI 16 to 18.4 or Weight <90% of ideal body weight1,2,3,4 Serum Albumin < 2.8 g/ dl1,2 Lymphocytes < 1500/ L2 Inadequate nutritional intake3, high stress e.g. major trauma, sepsis,pancreatitis, suarez etc. Decubitus ulcers1,2, , skin breakdown2, easy hair pluckability2 Weight <80% standard for height2 Triceps skin fold <3 mm2 Mid-arm muscle circumference <15 cm2 Creatinine-height index <60% standard2 [ ] Cachexia [ ] Emaciated w/Malnutrition [ ] Other: [ ] Unable to determine [ ] Comment/Explanation: Present on Admission: [ x] Yes (Y) [ ] Clinically undeterminable (W) [ ] No (N) Please also document response in your Progress Notes and/or Discharge Summary and indicate if the condition was present on admission. MTDD
[2018-06-24] MEDS: PEPCID PO SCH ×2 (11:03→22:12)
[2018-06-24] MEDS: LASIX PO SCH (11:03)
[2018-06-24] MEDS: HABITROL TD SCH (11:04)
[2018-06-24] MEDS: XIFAXAN PO SCH ×2 (11:04→22:12)
[2018-06-24] MEDS: KEPPRA PO SCH ×2 (11:04→22:12)
[2018-06-24] MEDS: ALDACTONE PO SCH ×2 (11:31→22:16)
[2018-06-24] MEDS: TOPROL XL PO SCH (11:32)
[2018-06-24] MEDS: NACL 0.9% 1000 ML 1,000 ML IV SCH (11:32)
[2018-06-24] MEDS: SODIUM CHLORIDE FLUSH SYRINGE 10 ML IV SCH ×2 (18:17→22:13)
[2018-06-25] MEDS: CEPHULAC PO SCH (05:22)
[2018-06-25] MEDS: PULMICORT IH SCH (08:30)
[2018-06-25] MEDS: BROVANA NEBU IH SCH (08:50)
[2018-06-25] MEDS ORDERED: ZAROXOLYN PO SCH ×2 (09:00)
[2018-06-25] MEDS: XIFAXAN PO SCH (10:19)
[2018-06-25] MEDS: ALDACTONE PO SCH (10:19)
[2018-06-25] MEDS: HABITROL TD SCH (10:20)
[2018-06-25] MEDS: LASIX PO SCH (10:20)
[2018-06-25] MEDS: TOPROL XL PO SCH (10:20)
[2018-06-25] MEDS: KEPPRA PO SCH (10:20)
[2018-06-25] MEDS: PEPCID PO SCH (10:20)
[2018-06-25] MEDS: SODIUM CHLORIDE FLUSH SYRINGE 10 ML IV SCH (10:21)
--- NOTE | 2018-06-25 10:28 | Discharge Summary ---
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 Renal ultrasound; echogenic lobular liver consistent with history of cirrhosis Probable portal systemic collaterals Gallbladder distended and filled with sludge, no evidence of acute cholecystitis Hospital course: Final diagnosis and management: --Hepatic encephalopathy; trending down to 92-68 On lactulose, monitor ammonia levels --End-stage liver failure /Cirrhosis liver/hyper bilirubinemia Continue current management, GI consulted Follow GI evaluation and recommendations --Hypokalemia; replace per protocol and monitor levels --Hypomagnesemia ;magnesium sulfate replacement per protocol --Hyponatremia; mild improvement Continue diuretics, closely monitor electrolytes --Hypertension; moderate control, continue current antihypertensives When necessary medications --Anemia; hemoglobin today is 6.8 Improved to 8, after 1 unit of PRBC transfusion yesterday --History of seizure disorder; Seizure precautions, continue antiepileptic medication, --AV and malnutrition/hypoalbuminemia; Supportive care, nutrition consult --DVT prophylaxis; SCDs, no pharmacologic anticoagulation in view of thrombocytopenia --DO NOT RESUSCITATE Very poor prognosis Recommend hospice and comfort care Disposition: [facility] ([facility]) Time spent for discharge: 32 min Core Measure Documentation - Palliative Care Palliative Care/ Comfort Measures: Hospice Care - Core Measures Any of the following diagnoses?: none Exam - Constitutional Vitals: Temp Pulse Resp BP Pulse Ox 98.1 F 66 18 106/68 96 06/25/18 06:00 06/25/18 06:00 06/25/18 06:00 06/25/18 06:00 06/25/18 06:00 General appearance: Present: mild distress, cachectic, other (confused) - EENT Eyes: Present: scleral icterus - Neck Neck: Present: supple, normal ROM - Respiratory Respiratory effort: normal Respiratory: bilateral: diminished, negative: rales, rhonchi - Cardiovascular Rhythm: regular Heart Sounds: Present: S1 & S2 - Extremities Extremities: no ischemia, No edema - Abdominal General gastrointestinal: Present: soft, non-tender, non-distended, normal bowel sounds - Integumentary Integumentary: Present: clear, warm - Musculoskeletal Musculoskeletal: strength equal bilaterally - Psychiatric Psychiatric: other (confused/encephalopathic at times) - Neurologic Neurologic: moves all extremities Plan Activity: advance as tolerated, fall precautions Diet: low salt, other (diet as tolerated) Additional Instructions: Further management per medical and health services manager Follow up with: PRIMARY CARE, [Primary Care Provider] - 3-5 Days
[2018-06-25 10:30] VITALS: BP 117/54
== END 2018-06-25 12:45 | disposition hospice, inpatient (51) | DRG 432 ==
LOC: ED 13:51 → 3A 20:38
PROVIDERS: ADMIT Internal Medicine; ATTEND Internal Medicine
PROC: 30233N1 Transfusion of Nonautologous Red Blood Cells into Peripheral Vein, Percutaneous Approach (ICD-10-PCS; principal; 2018-06-23)
DX: K70.31 Alcoholic cirrhosis of liver with ascites (principal); K72.00 Acute and subacute hepatic failure without coma; E43 Unspecified severe protein-calorie malnutrition; E87.1 Hypo-osmolality and hyponatremia; E72.20 Disorder of urea cycle metabolism, unspecified; N30.00 Acute cystitis without hematuria; I48.92 Unspecified atrial flutter; E87.6 Hypokalemia; G40.909 Epilepsy, unspecified, not intractable, without status epilepticus; J44.9 Chronic obstructive pulmonary disease, unspecified; Y90.0 Blood alcohol level of less than 20 mg/100 ml; Z66 Do not resuscitate; I10 Essential (primary) hypertension; K21.9 Gastro-esophageal reflux disease without esophagitis; F10.10 Alcohol abuse, uncomplicated; F17.200 Nicotine dependence, unspecified, uncomplicated; Z68.23 Body mass index [BMI] 23.0-23.9, adult; Z79.899 Other long term (current) drug therapy
CPT/HCPCS: 36415; 70450; 76705; 80053; 80307; 80320; 81001; 82140; 82962; 83036; 83735; 84443; 85007; 85025; 85049; 85610; 86850; 86900; 86901; 86920; 93005; 93010; 94640; 96361; 96374; 96375; 99406; G0480; J2060; J3475; J3480; J7030; J7040; P9016